=== PATIENT | female | born 1960 | race Caucasian/White ===

== ENCOUNTER → 2019-08-04 08:42 | Outpatient (POV) | payer OTHER, MEDICARE, SELFPAY ==
[2019-08-04 09:11] VITALS: BP 140/82; PULSE 71; RESP 18; O2SAT 98; BMI 26.2
--- NOTE | 2019-08-04 09:13 | P.CONS_ITS ---
[facility] History I have reviewed the patient's past medical history: Yes
--- NOTE | 2019-08-04 09:13 | HMH.PAINSOAP ---
[facility] History I have reviewed the patient's past medical history: Yes
--- NOTE | 2019-08-04 10:52 | HMH.PMCON ---
Assessment and Plan (1) Degenerative joint disease (DJD) of lumbar spine Current visit: Yes Status: Chronic Qualifiers: Spinal osteoarthritis complication: with radiculopathy Qualified Code(s): M47.26 - Other spondylosis with radiculopathy, lumbar region Category: Medical Code(s): M47.816 - Spondylosis without myelopathy or radiculopathy, lumbar region - Assessment and plan all Dx Assessment and Plan for all problems:: We will see the patient back in 6 months reassess her symptoms at that time she has been instructed to call the office if she has any issues prior to her next appointment. Dr. Knutson has reviewed this note and agrees with this plan of care. This note was dictated using voice recognition software and may contain errors or omissions HPI - Data of Consult Consult date: 08/04/19 Requesting Physician: Vidya Garcia APRN Primary Care Provider: Nicki Monson - Consult Narrative Reason for consult: Follow-up History of present illness: Ms. Borrego is a 59 year old female who presents today for follow-up. Patient has intrathecal pain pump and was an established [place] patient however she is transferring care to this location. She is on home refill with her intrathecal pain pump and doing well with this. She is currently on a periodic dose she rates her pain a 3 out of 10 she denies side effects or medication. Rico reviewed and appropriate. Most of her pain is in her back and bilateral lower extremities. CC: Vidya Garcia APRN [facility] [place] History I have reviewed the patient's past medical history: Yes Medical History: Reports:: Myocardial Infarction Denies:: Cancer, Diabetes Mellitus Type 1, Diabetes Mellitus Type 2, MRSA *Have you ever received a pneumonia vaccine?: Yes *Have you received a flu vaccine this season?: Yes Other Medical History: Reports: Thyroid Disease Laterality Cases: Right: Other Other Surgeries: Yes: Cholecystectomy, Hernia Repair, Hysterectomy-Total Amputation: Yes Fractures: Yes - *Social History Smoking Status: Never smoker Alcohol Intake: never *Occupational Status:: other Housing: house Household Members: other *Travel in the last 8 weeks: None Family Hx:: Unable to obtain Review of Systems - Review of Systems ROS General: no recent weight change, no fever, no sleep disturbances Respiratory: no cough, no shortness of air, no recurring pulmonary infections Cardiovascular/Peripheral Vascular: No chest pain, No palpitations, no edema, no shortness of breath. Gastrointestinal: no new onset incontinence, normal bowel movements reported Genitourinary: no new onset incontinence Musculoskeletal: Back pain, leg pain Psychiatric: normal mood/ affect Neurological: [denies new onset weakness in extremities], [denies new onset balance issues] Meds Home Medications Medication Instructions Recorded Confirmed Type Metoprolol Succinate [Kapspargo 25 mg PO DAILY 08/04/19 08/04/19 History Sprinkle] Trazodone HCl 50 mg PO HS 08/04/19 08/04/19 History Warfarin Sodium 5 mg PO DAILY 08/04/19 08/04/19 History Zolpidem Tartrate [Edluar] 5 mg SL DAILY 08/04/19 08/04/19 History Objective Vital signs: Pulse Resp BP Pulse Ox 71 18 140/82 98 08/04/19 09:11 08/04/19 09:11 08/04/19 09:11 08/04/19 09:11 Narrative: Physical Exam General: Alert and oriented x3, no acute distress, pleasant and cooperative, [on room air] Lungs: Resps E/U, Symmetrical chest expansion, Eyes: PERRL Musculoskeletal: Flexion and extension of lumbar spine somewhat guarded secondary to pain, deep tendon reflexes normal, strength in upper and lower extremities [5/5], normal gait noted Neurological: speech clear, graphite disk assembler equal, no gross sensory deficits
== END ==
PROVIDERS: PCP Internal Medicine; Visit Provider Clinical Nurse Specialist Family Health
DX: M47.26 Other spondylosis with radiculopathy, lumbar region (principal)
CPT/HCPCS: 99202

== ENCOUNTER → 2020-02-05 10:53 | Outpatient (POV) | payer OTHER, MEDICARE, SELFPAY ==
[2020-02-05 11:27] VITALS: BP 109/60; PULSE 64; RESP 18; TEMP 36.8; O2SAT 98; BMI 26.4
--- NOTE | 2020-02-05 13:04 | P.PCN_ITS ---
- Procedure Date: 02/05/20 Time: 13:04 Anesthesiologist:: Christa Smith APRN Complications:: None Pre-procedure Diagnosis:: Degenerative disc disease lumbar spine with lumbar radiculopathy symptoms, spondylosis lumbar spine Post-procedure Diagnosis:: Same Indications for Procedure:: Patient is a 59-year-old white female who presents today for 6-month follow-up. She does have an intrathecal pain pump that is helping refilled. She says that her pain is a 5 out of 10 today. Patient says that the pump does well for her, however, she is having worsening pain of recent days into her low back area. She says injective therapy has not helped her in the past nor has physical therapy or anti-inflammatories. She would like an increase in her dose today. She is currently on morphine at 6.15 mg/day. She is on periodic flow at 0.76 mg every 3 hours. She would like an increase. We will give her a bolus while she is in the clinic today to see if this helps with her pain. The patient [facility] #[id number] has been reviewed and is appropriate. Her drug screens have been appropriate. Her morphine equivalent is 0. Physical exam General: Alert and oriented x3, no acute distress, pleasant and cooperative, [on room air] Lungs: Respirations even and unlabored, symmetrical chest expansion Eyes: PERRL Musculoskeletal: Flexion and extension of lumbar spine somewhat guarded s econdary to pain, deep tendon reflexes normal, strength in upper and lower extremities [5/5], [abnormal gait noted] Neurological: Speech clear, diesel engine engineer equal, no gross sensory deficit Procedure Details:: Informed consent was obtained and the risk and benefits of the procedure were explained to the patient. Patient was taken to the procedure room where noninvasive monitoring was placed including noninvasive blood pressure cuff and pulse oximeter. Patient's pump was interrogated and was reprogrammed to increase to morphine at 0.96 mg every 3 hours for a daily dose of morphine at 7.68 mg/day. The patient tolerated the procedure well with no complications. Plan and Disposition:: Patient was given a bolus of 0.05 mg/day while she was in the clinic. She says that she did get some relief. She was given an increase in her dosing. She has been instructed to call the clinic if she has any concerns or issues with any increase in her dose. Otherwise, we will see her back in 6 months for repeat evaluation. She has been instructed to contact clinic if she has any concerns for next appointment. The patient and I specifically discussed risk factors for COVID19. These risks include, but are not limited to age greater than 60, heart or lung disease, diabetes, immunosuppression, and travel. We also discussed NSAIDs may worsen COVID19 infection or symptoms. Patient should not use NSAIDs to treat COVID19 signs or symptoms. Patient was also informed that any type of corticosteroid of any form (oral or injection) will decrease the patient's immune system response and may increase the likelihood of COVID19 infection [address] symptoms[address]. Knutson has reviewed this note and agrees with this plan of care. This note was dictated using voice recognition software and make contain errors or omissions.
== END ==
PROVIDERS: PCP Internal Medicine; Visit Provider Clinical Nurse Specialist Family Health
DX: M51.16 Intervertebral disc disorders with radiculopathy, lumbar region (principal); M47.896 Other spondylosis, lumbar region; Z45.1 Encounter for adjustment and management of infusion pump
CPT/HCPCS: 62368

== ENCOUNTER → 2020-08-05 10:53 | Outpatient (POV) | payer OTHER, MEDICARE, SELFPAY ==
[2020-08-05 11:17] VITALS: BP 141/79; PULSE 80; RESP 18; O2SAT 98; BMI 27.0
--- NOTE | 2020-08-05 11:45 | HMH.PMPROC ---
- Procedure Date: 08/05/20 Time: 11:45 Anesthesiologist:: Vidya Garcia APRN Complications:: None Pre-procedure Diagnosis:: Degenerative disc disease lumbar spine lumbar radiculopathy back pain Post-procedure Diagnosis:: Same Indications for Procedure:: Patient is a pleasant 60-year-old white female who presents today for follow-up and intrathecal pain pump adjustment. She is on home refill. She is currently going on a periodic flow of 1.056 mg every 3 hours. She would like a slight increase she rates her pain today 5 out of 10. Overall doing well denies side effects from medication. Procedure Details:: Informed consent was obtained and the risk and benefits of the procedure were explained to the patient. The patient was taken to the procedure room where noninvasive monitoring was placed including noninvasive blood pressure cuff and pulse oximeter. Patient's pump was interrogated and reprogrammed. The infusion rate was increased to 1.1 mg every 3 hours of morphine. The patient tolerated the procedure well. Plan and Disposition:: We will see the patient back in 6 months reassess her symptoms at that time she has been instructed to call the office if she has any issues prior to her next appointment. Dr. Knutson has reviewed this note and agrees with this plan of care. This note was dictated using voice recognition software and may contain errors or omissions
--- NOTE | 2020-10-04 08:45 | PC.NURSE ---
Dental office faxed note stating patient was prescribed Tylenol 3 #12 with 0 refills on Sunday10/01/2020 for dental related pain.
== END ==
PROVIDERS: PCP Internal Medicine; Visit Provider Clinical Nurse Specialist Family Health
DX: M51.16 Intervertebral disc disorders with radiculopathy, lumbar region (principal); Z45.1 Encounter for adjustment and management of infusion pump
CPT/HCPCS: 62368

== ENCOUNTER → 2021-02-03 11:04 | Outpatient (POV) | payer OTHER, MEDICARE, SELFPAY ==
[2021-02-03 11:25] VITALS: BP 107/80; PULSE 66; RESP 18; O2SAT 98; BMI 25.1
--- NOTE | 2021-02-03 12:28 | HMH.PAINSOAP ---
[facility] Pain Management SOAP Note Subjective:: Patient is a pleasant 60-year-old white female who presents today for follow-up. She is at [facility] home refill patient. She is managed with intrathecal therapy which gives her significant relief. She denies any side effects to her medicine and is doing well overall with morphine. She says her pain is a 4 out of 10 which is baseline for her. She does not want any changes today. Overall, the patient is doing well today. Review of Systems General: No recent weight changes, no fever, no sleep disturbances Respiratory: No cough, no shortness of air, no recurring pulmonary infections Cardiovascular/peripheral vascular: No chest pain, no palpitations, no edema, no shortness of breath Gastrointestinal: No new onset incontinence, normal bowel movements reported Genitourinary: No new onset incontinence Musculoskeletal: Intermittent low back pain Psychiatric: [Normal mood/affect] Neurological: [Denies weakness in extremities], [denies balance issues] Objective:: Physical exam General: Alert and oriented x3, no acute distress, pleasant and cooperative Lungs: Respirations even and unlabored, symmetrical chest expansion Eyes: PERRL Musculoskeletal: Flexion and extension of lumbar [spine] somewhat guarded secondary to pain, [antalgic gait noted] Neurological: Speech clear, no gross sensory deficit Assessment:: Degenerative disc disease lumbar spine with lumbar radiculopathy symptoms Plan:: Patient is doing well overall with her intrathecal therapy. She continues to be monitored through [facility] with drug screens and medication refill. Patient's Yoselyn #[id number] has been reviewed and is appropriate. Morphine equivalent is 0. We will see the patient back in 6 months for further follow-up. Risks and benefits of the medication have been explained in detail to the patient. The patient does understand the risk of dependence on the medication when given over a prolonged period. Patient has been advised of risks of oversedation with the prescribed medication. Narcan has been offered to the paitent in the event of oversedation. Patient has been advised that a family member should also be educated regarding administration of Narcan. The patient has been advised to consult with his/her primary care provider and pharmacist regarding drug-drug interaction of medications currently prescribed. Patient has been prescribed a controlled substance after being counseled on the medication, medication safety, and possible side effects. YOSELYN report has been obtained and reviewed prior to prescription and found to be appropriate. Opioid contract was reviewed and signed by the patient, and that they have agreed to all of the terms set forth by our compliance program. Patient has been instructed to contact the clinic with any concerns before the next appointment. Dr. Knutson has reviewed this note and agrees with this plan of care. This note was dictated using voice recognition software and make contain errors or omissions. [facility] History Medical History: Reports:: Myocardial Infarction Denies:: Cancer, Diabetes Mellitus Type 1, Diabetes Mellitus Type 2, MRSA *Have you ever received a pneumonia vaccine?: No *Have you received a flu vaccine this season?: No Other Medical History: Reports: Thyroid Disease Laterality Cases: Right: Other Other Surgeries: Yes: Cholecystectomy, Hernia Repair, Hysterectomy-Total Amputation: Yes Fractures: Yes - *Social History Smoking Status: Never smoker Alcohol Intake: never *Occupational Status:: unemployed Housing: house Household Members: other *Travel in the last 8 weeks: None Family Hx:: Unable to obtain
== END ==
PROVIDERS: Visit Provider Clinical Nurse Specialist Family Health
DX: M51.16 Intervertebral disc disorders with radiculopathy, lumbar region (principal)
CPT/HCPCS: 99212; G0463

== ENCOUNTER → 2021-08-18 13:58 | Outpatient (POV) | payer BC, MEDICARE, SELFPAY ==
[2021-08-18 14:15] VITALS: BP 121/70; PULSE 66; RESP 18; TEMP 36.2; O2SAT 97; BMI 24.9
--- NOTE | 2021-08-18 15:59 | P.CONS_ITS ---
[facility] Pain Management SOAP Note Subjective:: Patient is a pleasant 61-year-old female who presents today for 6-month follow- up. She is currently being treated for your degenerative disc disease of the lumbar spine with lumbar radiculopathy symptoms. She is currently being managed with intrathecal morphine 20 mg/mL at a rate of 8.8 mg/day. She is a home refill [facility]. States that she is doing well with her intrathecal pain pump. Denies any side effects from these medication. Denies any change in location type of pain. Denies any recent hospitalization. Overall doing okay today. Rico [phone] with an active morphine equivalent of 0. Review of Systems: General: No recent weight changes, no fever, no sleep disturbances Respiratory: No cough, no shortness of air, no recurring pulmonary infections Cardiovascular/peripheral vascular: No chest pain, no palpitations, no edema, no shortness of breath Gastrointestinal: No new onset incontinence, normal bowel movements reported Genitourinary: No new onset incontinence Musculoskeletal: Low back pain Psychiatric: [Normal mood/affect] Neurological: [Denies weakness in extremities], [denies balance issues] Objective:: Physical Exam: General: Alert and oriented x3, no acute distress, pleasant and cooperative Lungs: Respirations even and unlabored, symmetrical chest expansion Eyes: PERRL Musculoskeletal: Flexion and extension of lumbar [spine] somewhat guarded secondary to pain, [antalgic gait noted] Neurological: Speech clear, no gross sensory deficit Assessment:: Degenerative disc disease of lumbar spine with lumbar radiculopathy symptoms Plan:: Patient is doing well overall with her intrathecal pain pump. She does not want any adjustments today. We will follow-up with her in 6 months. Patient has been instructed to contact the clinic with any concerns before the next appointment. Dr. Knutson has reviewed this note and agrees with this plan of care. This note was dictated using voice recognition software and make contain errors or omissions. [facility] History Medical History: Reports:: Myocardial Infarction Denies:: Cancer, Diabetes Mellitus Type 1, Diabetes Mellitus Type 2, MRSA *Have you ever received a pneumonia vaccine?: No *Have you received a flu vaccine this season?: No Other Medical History: Reports: Thyroid Disease Laterality Cases: Right: Other Other Surgeries: Yes: Cholecystectomy, Hernia Repair, Hysterectomy-Total Amputation: Yes Fractures: Yes - *Social History Smoking Status: Never smoker Alcohol Intake: never *Occupational Status:: unemployed Housing: house Household Members: other *Travel in the last 8 weeks: None Family Hx:: Unable to obtain
== END ==
PROVIDERS: Visit Provider Student in an Organized Health Care Education/Training Program
DX: M51.16 Intervertebral disc disorders with radiculopathy, lumbar region (principal)
CPT/HCPCS: 99212; G0463

== ENCOUNTER → 2022-03-27 13:11 | Outpatient (POV) | payer BC, MEDICARE, SELFPAY ==
--- NOTE | 2022-03-27 13:57 | EXP.PAIN.PRO ---
Procedure Date: 03/27/22 Time: 13:57 Anesthesiologist:: Carol Amanda APRN Complications:: None Pre-procedure Diagnosis:: Degenerative disc disease of lumbar spine with lumbar radiculopathy symptoms Post-procedure Diagnosis:: Same Indications for Procedure:: Patient is a pleasant 61-year-old female who presents today for intrathecal pain pump reprogramming adjustment. The patient is being treated for degenerative disc disease of lumbar spine with lumbar radiculopathy symptoms. Patient is currently being managed with morphine 25 mg/mL with a daily dose of 11.5 mg/day. Patient denies any side effects from this medication. Patient rates pain a 5 out of 10. Patient states she has consistently had increased pain over the last several weeks. Patient denies any new trauma or injury. Patient denies any change location or type of pain she experiences. She is a home refill [facility] patient. Drug screen is appropriate. Rico [id number] has been reviewed and is appropriate. Physical exam General: Alert and oriented x3, no acute distress, pleasant and cooperative Lungs: Respirations even and unlabored, symmetrical chest expansion Eyes: PERRL Musculoskeletal: Flexion and extension of lumbar [spine] somewhat guarded secondary to pain, [antalgic gait noted] Neurological: Speech clear, no gross sensory deficit ORT score updated with low risk of 0 Procedure Details:: Informed consent was obtained and the risk and benefits of the procedure were explained to the patient. Patient was taken to the procedure room where noninvasive monitoring was placed including noninvasive blood pressure cuff and pulse oximeter. Patient's pump was interrogated and was reprogrammed to morphine 25 mg/mL with a daily dose of 12.08 mg/day. The patient tolerated the procedure well with no complications. Plan and Disposition:: Patient will contact us if she needs additional follow-up appointments. Patient is scheduled to have her next at home refill date on her April 06. Patient has been instructed to contact the clinic with any concerns before the next appointment. Dr. Knutson has reviewed this note and agrees with this plan of care. This note was dictated using voice recognition software and make contain errors or omissions. -- It Is medically necessary for this patient to continue to have their intrathecal pump refilled at regular intervals. This patient had an intrathecal pain pump implanted after meeting criteria of chronic intractable pain for greater than 3 months and failing conservative treatments. Patient has committed and been compliant to the treatment plan and all planned follow up care. Since implantation of the intrathecal pain pump, the patient has had decreased pain and been more functional. Oral medications have been reduced including intake of oral opioids. Patient continues to do well with intrathecal therapy with decrease in pain symptoms and increase in functional status. Stopping intrathecal medications can lead to life threatening withdrawal, seizures, cardiac arrest, severe pain, and possible . Pumps that are not refilled at regular intervals can be damages and cause and need for replacement. We continually titrate dose and concentration to optimize pain relief and function. We are limited in concentration for certain drugs to safely deliver medications through the pump and stay within the recommendations from the Polyanalges[employer] Consensus Committee Guidelines. Depending on dose and concentration these pumps may need to be refilled sooner than 3 months as we titrate.
[2022-03-27 14:29] VITALS: BP 134/92; PULSE 61; RESP 18; O2SAT 97; BMI 25.7
== END | disposition home or self-care (01) ==
PROVIDERS: Visit Provider Nurse Practitioner Family
DX: Z45.1 Encounter for adjustment and management of infusion pump (principal); M51.16 Intervertebral disc disorders with radiculopathy, lumbar region
CPT/HCPCS: 62368; 99212; G0463

== ENCOUNTER 2023-10-08 11:25 | Outpatient (POV) | payer MEDICARE, SELFPAY ==
[2023-10-08 11:29] VITALS: BP 129/80; PULSE 80; RESP 18; O2SAT 96; BMI 25.2
--- NOTE | 2023-10-08 11:59 | A.OFFVIS_ITS ---
[facility] Disclaimer: The information contained in this section may have been updated after the patient was seen, as this information can be updated by other users. Social History Smoking Status: Never smoker alcohol intake: never current occupational status: other Travel in the last 8 weeks: None household members: other housing: house caffeine: No PM Subjective & Objective Subjective Subjective:: Patient is a pleasant 63-year-old female who presents today for 6-month follow- up. Today she rates her pain a 4 out of 10. Patient denies any new trauma or injury. Patient is currently managed with morphine 25 mg/mL with a daily dose of 14.4 mg/day. She denies any side effects from this medication. She does state that she is curious of when her next pump replacement needs to be. Patient states that she feels like she has had her pump about 7 years. Patient is not at home refill client and does state the only thing that she has noticed over the last few months is that the nurse who fills her has said there has been a little bit more on her pump refills when they remove the fluid however it still within normal findings. Patient states overall the pump is working well and denies any adjustments needed today. Her Rico has been reviewed and is a ppropriate. Review of Systems: General: No recent weight changes, no fever, no sleep disturbances Respiratory: No cough, no shortness of air, no recurring pulmonary infections Cardiovascular/peripheral vascular: No chest pain, no palpitations, no edema, no shortness of breath Gastrointestinal: No new onset incontinence, normal bowel movements reported Genitourinary: No new onset incontinence Musculoskeletal: Low back pain Psychiatric: [Normal mood/affect] Neurological: [Denies weakness in extremities], [denies balance issues] Pain at rest (0-10 scale): 4 Objective Objective:: Physical Exam: General: Alert and oriented x3, no acute distress, pleasant and cooperative Lungs: Respirations even and unlabored, symmetrical chest expansion Eyes: PERRL Musculoskeletal: Flexion and extension of lumbar [spine] somewhat guarded secondary to pain, [antalgic gait noted] Neurological: Speech clear, no gross sensory deficit Has patient had previous pain injection?: No Conservative treatment options previously tried: Home exercise plan Length of treatment: Longer than 6 weeks Meds Home Medications and Allergies Home Medications Medication Instructions Recorded Confirmed Type metoprolol succinate 25 mg capsule 25 mg PO DAILY Hypertension 08/04/19 10/08/23 History sprinkle, ext. release 24 hr trazodone 50 mg tablet 50 mg PO HS SLEEP 08/04/19 10/08/23 History warfarin 5 mg tablet 5 mg PO DAILY Blood thinner 08/04/19 10/08/23 History zolpidem 5 mg sublingual tablet 5 mg SL DAILY Depression 08/04/19 10/08/23 History New Prescriptions to Start Prescriptions: Allergies Allergy/AdvReac Type Severity Reaction Status Date / Time No Known Allergies Allergy Verified 10/08/23 11:40 Assessment and Plan *Assessment and plan (1) Degenerative joint disease (DJD) of lumbar spine: Status: Chronic Qualifiers: Spinal osteoarthritis complication: with radiculopathy Qualified Code(s ): M47.26 - Other spondylosis with radiculopathy, lumbar region Category: Medical Code(s): M47.816 - Spondylosis without myelopathy or radiculopathy, lumbar region Plan Patient is still doing well with her current pump settings. We did read her pump and it was not given an end of life date. I have counseled the patient if she starts to feel like her pump is not working as effectively and that the [facility] nurse is still having additional problems or discrepancies that at that time we would submit for replacement of her pump and catheter. Patient is agreeable to this. Patient will return to clinic in 6 months for reevaluation of symptoms and plan of care. Patient has been instructed to contact the clinic with any concerns before the next appointment. Dr. Knutson has reviewed this note and agrees with this plan of care. This note was dictated using voice recognition software and make contain errors or omissions. -- It Is medically necessary for this patient to continue to have their intrathecal pump refilled at regular intervals. This patient had an intrathecal pain pump implanted after meeting criteria of chronic intractable pain for greater than 3 months and failing conservative treatments. Patient has committed and been compliant to the treatment plan and all planned follow up care. Since implantation of the intrathecal pain pump, the patient has had decreased pain and been more functional. Oral medications have been reduced including intake of oral opioids. Patient continues to do well with intrathecal therapy with decrease in pain symptoms and increase in functional status. Stopping intrathecal medications can lead to life threatening withdrawal, seizures, cardiac arrest, severe pain, and possible . Pumps that are not refilled at regular intervals can be damages and cause and need for replacement. We continually titrate dose and concentration to optimize pain relief and function. We are limited in concentration for certain drugs to safely deliver medications through the pump and stay within the recommendations from the Polyanalgesic Consensus Committee Guidelines. Depending on dose and concentration these pumps may need to be refilled sooner than 3 months as we titrate.
== END 2023-10-08 23:59 | disposition home or self-care (01) ==
LOC: SC.PAIN 11:28
PROVIDERS: PCP Internal Medicine; Visit Provider Nurse Practitioner Family
DX: M47.26 Other spondylosis with radiculopathy, lumbar region (principal); G89.29 Other chronic pain
CPT/HCPCS: 99212; G0463

== ENCOUNTER 2023-12-18 11:43 | Day surgery (SDC) | payer MEDICARE, SELFPAY ==
[2023-12-18 11:50] VITALS: BP 164/90; PULSE 81; RESP 16; TEMP 36.6; O2SAT 96; BMI 20.7
[2023-12-18 12:04] VITALS: BP 155/97; PULSE 83; RESP 18; O2SAT 98
[2023-12-18 12:05] VITALS: BP 155/97; PULSE 83; RESP 18; O2SAT 98
--- NOTE | 2023-12-18 12:29 | P.PCN_ITS ---
Procedure Date: 12/18/23 Time: 12:12 Anesthesiologist:: Bertrand Ramos CRNA Complications:: None Pre-procedure Diagnosis:: Degenerative disc lumbar spine multiple levels. Lumbar radiculopathy. Multilevel lumbar facet arthropathy. Post-procedure Diagnosis:: Same. Indications for Procedure:: Patient is a very pleasant 63-year-old female comes our clinic today for intrathecal pain pump interrogation and refill. She is currently being managed with morphine sulfate 25 mg/mL at a rate of 14.4 mg/day. She is having some increased pain in the low spine she is concerned is coming from the pump timing out as it has been in for nearly 8 years. There is no discrepancy in the pump volume. However, I will increase her rate by 10%. We will begin the paperwork to get her pump exchanged out for new Medtronic pump. Patient is awake alert [place] x 3. No acute distress. Flexion-extension lumbar spine somewhat guarded secondary to pain. Deep tendon reflexes upper lower extremities normal. Motor strength upper lower extremities normal. There is no gross sensory deficit. Gait is normal. Procedure Details:: Details of the procedure explained to the patient. The patient taken procedure and placed in the sitting position. The area of the pump was cleansed using chlorhexidine as a cleansing solution. The pump was interrogated. The pump was accessed with ease using a 22-gauge inch to half needle. 5 mL of solution was withdrawn discarded appropriate. The pump was then filled with 20 cc of solution containing morphine sulfate 25 mg/mL. The pump rate will increase by 10%. The new rate will be 15.8400 mg/day. Patient tolerated procedure without difficulty. There are no complications. Plan and Disposition:: We will begin the paperwork for pump exchange approval with insurance. Patient was discharged without incident.
[2023-12-18 12:31] VITALS: BP 157/86; PULSE 83; RESP 16; O2SAT 97
== END 2023-12-18 12:31 | disposition home or self-care (01) ==
PROVIDERS: PCP Internal Medicine; Visit Provider Nurse Anesthetist, Certified Registered
DX: M51.16 Intervertebral disc disorders with radiculopathy, lumbar region (principal); M47.26 Other spondylosis with radiculopathy, lumbar region
CPT/HCPCS: 95991

== ENCOUNTER 2024-01-08 11:47 | Day surgery (SDC) | payer MEDICARE, SELFPAY ==
[2024-01-08 12:57] VITALS: BP 161/92; PULSE 73; RESP 16; O2SAT 97; BMI 25.1
[2024-01-08 13:09] VITALS: BP 160/97; PULSE 67; RESP 18; O2SAT 96
[2024-01-08 13:13] VITALS: BP 160/97; PULSE 69; RESP 18; O2SAT 96
[2024-01-08 13:29] VITALS: BP 162/98; PULSE 71; RESP 16; O2SAT 98
--- NOTE | 2024-01-08 13:33 | P.PCN_ITS ---
Procedure Date: 01/08/24 Time: 13:00 Anesthesiologist:: Bertrand Ramos CRNA Complications:: None Pre-procedure Diagnosis:: Degenerative disc lumbar spine multilevels. Lumbar radiculopathy. Lumbar facet arthropathy. Post-procedure Diagnosis:: Same. Indications for Procedure:: Patient is a pleasant 63-year-old female who comes our clinic today for intrathecal pain pump interrogation refill. She is currently being managed with morphine sulfate 25 mg/mL 15.8400 mg/day. She is doing very well with her current settings. She is not requesting any changes. She does not reporting side effects or complications. However, she does report the pump seems to be not as effective as before. She has a flow [place] pump that is over 7 years old. Most likely, needs to be changed out for the new Medtronic pump. We have the paperwork in progress for this procedure. Patient is awake alert [place] x 3. In no acute distress. Flexion-extension lumbar spine somewhat guarded secondary to pain. Deep tendon reflexes upper and lower extremities normal. Motor strength upper lower extremities normal. There is no gross sensory deficit. Gait is normal. Procedure Details:: Details of the procedure explained to the patient. The patient taken procedure room placed in the sitting position. They over the pumps cleansed using chlorhexidine as a cleansing solution. The pump was interrogated. The pump was accessed with ease using a 22-gauge inch and a half needle. 6 mL of solution was withdrawn discarded appropriate. The pump was then filled with 20 cc of solution containing morphine sulfate 25 mg/mL. There is no change in the rate. Patient tolerated procedure without difficulty. There are no complications. Plan and Disposition:: We will keep the patient informed regarding pump exchange approval from insurance. She was discharged without incident.
== END 2024-01-08 13:29 | disposition home or self-care (01) ==
PROVIDERS: PCP Internal Medicine; Visit Provider Nurse Anesthetist, Certified Registered
DX: M51.16 Intervertebral disc disorders with radiculopathy, lumbar region (principal); M47.26 Other spondylosis with radiculopathy, lumbar region
CPT/HCPCS: 95991

== ENCOUNTER 2024-01-29 09:50 | Day surgery (SDC) | payer MEDICARE, SELFPAY ==
[2024-01-29 10:13] VITALS: BP 136/77; PULSE 72; RESP 16; TEMP 36.7; O2SAT 98; BMI 24.3
[2024-01-29 10:37] VITALS: BP 134/73; PULSE 79; RESP 18; O2SAT 97
[2024-01-29 10:41] VITALS: BP 134/73; PULSE 79; RESP 18; O2SAT 97
[2024-01-29 10:53] VITALS: BP 137/85; PULSE 71; RESP 16; O2SAT 94
--- NOTE | 2024-01-29 10:58 | EXP.PAIN.PRO ---
Procedure Date: 01/29/24 Time: 10:30 Anesthesiologist:: Bertrand Ramos CRNA Complications:: None Pre-procedure Diagnosis:: Degenerative disc lumbar spine multilevels. Lumbar radiculopathy Post-procedure Diagnosis:: Same. Indications for Procedure:: Patient is a very pleasant 63-year-old female comes our clinic today for intrathecal pain pump interrogation refill. She is currently being managed morphine sulfate 25 mg/mL. She is reporting some low back pain as well as bilateral hip and leg pain at times. Specifically, with increased activity. She is requesting increase in the pump rate. I think this is reasonable. I will give her a 20% increase. Patient also on the schedule for next month pump exchange. Her current rate is 15.8400 mg/day. Her new rate will be 19.0080 mg/day. Patient awake alert [place] x 3. No acute distress. Flexion-extension lumbar spine somewhat guarded secondary to pain. Deep tendon reflexes upper lower extremities normal. Motor strength upper lower extremities normal. There is no gross sensory deficit. Gait is normal. Procedure Details:: Details of the procedure explained the patient. The patient taken procedure room placed in sitting position. They over the pumps cleansed using chlorhexidine as a cleansing solution. The pump was interrogated. The pump was accessed with ease using 22-gauge inch and a half needle. 6 mL of solution was withdrawn discarded appropriate. The pump was then filled with 20 cc of solution containing morphine sulfate 25 mg/mL. The pump rate will increase to 19.0080 mg/day. Patient tolerated procedure without difficulty. There are no complications. Plan and Disposition:: Patient was discharged without incident.
== END 2024-01-29 10:53 | disposition home or self-care (01) ==
PROVIDERS: PCP Internal Medicine; Visit Provider Nurse Anesthetist, Certified Registered
DX: M51.16 Intervertebral disc disorders with radiculopathy, lumbar region (principal)
CPT/HCPCS: 62370

== ENCOUNTER 2024-02-19 13:29 | Day surgery (SDC) | payer MEDICARE, SELFPAY ==
[2024-02-19 13:41] VITALS: BP 143/62; PULSE 68; RESP 16; TEMP 36.5; O2SAT 100; BMI 24.3
[2024-02-19 13:51] VITALS: BP 134/81; PULSE 72; RESP 18; O2SAT 98
[2024-02-19 13:54] VITALS: BP 134/81; PULSE 72; RESP 18; O2SAT 98
--- NOTE | 2024-02-19 14:00 | EXP.PAIN.PRO ---
Procedure Date: 02/19/24 Time: 13:55 Anesthesiologist:: Bertrand Ramos CRNA Complications:: None Pre-procedure Diagnosis:: Degenerative disc lumbar spine multilevels. Lumbar radiculopathy. Post-procedure Diagnosis:: Same. Indications for Procedure:: Patient is a very pleasant 63-year-old female who comes our clinic today for intrathecal pain pump interrogation and refill. She is currently being managed with morphine sulfate 25 mg/mL at 19.0080 mg/day. She is requesting increase. She is on the schedule for 02/29/2024 to have both intrathecal pain pump and tubing exchange. I will increase her by 20% today. Her pump is coming to end-of-life. She rates her pain 4/10. Procedure Details:: Details of the procedure explained to the patient. The patient taken procedure room placed in the sitting position. They over the pumps cleansed using chlorhexidine as a cleansing solution. The pump was interrogated. The pump was accessed with ease using a 22-gauge inch and half needle. 3 mL of solution was withdrawn discarded appropriate. The pump was then filled with 20 cc of solution containing morphine sulfate 25 mg/mL. Pump rate will be increased to 22.8096 mg/day. Patient tolerated procedure without difficulty. There are no complications. Plan and Disposition:: Patient was discharged without incident.
[2024-02-19 14:08] VITALS: BP 133/83; PULSE 72; RESP 16; O2SAT 97
== END 2024-02-19 14:08 | disposition home or self-care (01) ==
PROVIDERS: PCP Internal Medicine; Visit Provider Nurse Anesthetist, Certified Registered
DX: M51.16 Intervertebral disc disorders with radiculopathy, lumbar region (principal)

== ENCOUNTER 2024-02-19 13:56 | Outpatient (CLI) | payer MEDICARE, SELFPAY ==
--- NOTE | 2024-02-19 14:53 | ECG_ITS ---
APPROVED REPORT Exam: Resting ECG HR:61 bpm ECG Measurements Heart Rate 61 AXES WI 227 P 68 QRSd 206 QRS -75 QT 542 T 78 QTc 545 Conclusion ELECTRONIC VENTRICULAR PACEMAKER ABNORMAL RHYTHM ECG UNCONFIRMED REPORT Electronically signed by : Corey Javier MD 02/20/2024 20:55:12
[2024-02-19 14:58] VITALS: BMI 24.3
[2024-02-19 15:14] LABS: Basophils % 0.6 % (0.1-2.0); Eosinophils # 0.1 K/mm3 (0.0-0.4); Eosinophils % 3.1 % (0.1-12.0); Hemoglobin 12.8 g/dL (12.2-16.2); Lymphocytes # 1.1 K/mm3 (0.7-4.5); Lymphocytes % 24.4 % (10-50); Mean Corpuscular HGB Conc 33.7 g/dL (31.8-35.4); Mean Corpuscular Hemoglobin 30.3 pg (27.0-31.2); Mean Corpuscular Volume 89.8 fl (81-99); Mean Platelet Volume 8.4 fl (7.4-10.4); Monocytes # 0.3 K/mm3 (0.1-1.0); Monocytes % 5.6 % (1.7-9.3); Neutrophils % 66.3 % (37.0-80.0); Platelet Count 195 K/mm3 (142-424); Red Blood Count 4.24 M/mm3 (4.20-5.40); Red Cell Distribution Width 14.2 % (11.5-17.5); White Blood Count 4.6 K/mm3 (4.8-10.8)
[2024-02-19 15:15] LABS: Anion Gap 7.9 mEq/L (5-15); Blood Urea Nitrogen 14 mg/dl (7-17); Calcium 8.3 mg/dl (8.4-10.2); Carbon Dioxide 29 mmol/L (22.0-30.0); Chloride 106 mmol/L (98-107); Creatinine Clearance Estimated 66 mL/min (50-200); Estimated Glomerular Filt Rate 84 ml/min (>60); GFR (African American) 102 ML/MIN (>60); Glucose 101 mg/dl (74-100); Potassium 3.9 mmoL/L (3.5-5.1); Sodium 139 mmol/L (136-145)
== END 2024-02-19 23:59 | disposition home or self-care (01) ==
LOC: PREOP 13:57
PROVIDERS: Nurse Anesthetist, Certified Registered; PCP Internal Medicine; Visit Provider Anesthesiology
DX: M47.816 Spondylosis without myelopathy or radiculopathy, lumbar region (principal)
CPT/HCPCS: 80048; 85025; 93005; 95991

== ENCOUNTER 2024-02-29 07:41 | Day surgery (SDC) | payer MEDICARE, SELFPAY ==
[2024-02-19 14:56] VITALS: BMI 24.3
[2024-02-29 10:55] VITALS: BP 145/78; PULSE 76; RESP 17; TEMP 36.3; O2SAT 94
[2024-02-29] MEDS: VANCOMYCIN/WATER FOR INJ (PEG) 1.25 GM/250 ML PIGGYBACK IV (11:02)
[2024-02-29] MEDS: LACTATED RINGERS 1000ML 1,000 ML 25 ML IV (11:04)
[2024-02-29 11:25] LABS: INR 0.93 (0.9-1.1); Prothrombin Time 10.5 seconds (10.1-12.5)
--- NOTE | 2024-02-29 12:43 | P.PNANES_ITS ---
[facility] Disclaimer: The information contained in this section may have been updated after the patient was seen, as this information can be updated by other users. Medical History Pacemaker Hypothyroid Biallelic mutation of HFE gene Anticoagulated on Coumadin Surgical History History of colon resection History of hernia repair History of hysterectomy History of appendectomy History of thyroidectomy Family History Other Unknown family medical history Social History Smoking Status: Never smoker alcohol intake: never substance use type: denies use current occupational status: other Travel in the last 8 weeks: None household members: other housing: house caffeine: No [facility] Anesthesia Checklist Patient Identification Patient Identification: Verbal (Name & ) Structural Data Admitted From: Home Planned Operative Procedure/s: nerve stim trial Consent for Planned Operative Procedure(s) Verified: Yes NPO Status Verified Time NPO: 00:00 Additional verifications Anesthesia Reactions: No Hx Blood Transfusions: Yes Blood Transfusion Reaction: No Airway Assessment Mallampati Score:: Class III C-Spine Mobility Assessed: Yes TMJ Mobility Assessed: Yes Dentition: Good Dentition Neurological Assessment Level of Consciousness: Awake, Alert and Appropriate Anesthesia Plan Anesthesia Risk discussed: No Anesthesia Plan: Verified ASA Class: III Anesthesia Type: MAC
[2024-02-29] MEDS: SODIUM CHLORIDE 0.9% 20ML VIAL 40 ML IV (13:54)
[2024-02-29] MEDS: GENTAMICIN 80 MG/2 ML VIAL (13:54)
[2024-02-29 14:25] VITALS: BP 113/72; PULSE 66; RESP 18; TEMP 36.2; O2SAT 95
[2024-02-29 14:35] VITALS: BP 112/77; PULSE 60; RESP 18; O2SAT 96
--- NOTE | 2024-02-29 14:43 | P.OP_ITS ---
Date of procedure: 02/29/24 Pre-op Diagnosis:: Nonfunctioning intrathecal pain pump system Post-op Diagnosis:: Same Procedure performed:: Replacement pain pump system with new tunneled intrathecal catheter and replacement pain pump generator Surgeon:: Shiv Knutson MD ASSISTANT PRESS OPERATOR OFFSET:: [place] Anesthesia: MAC Estimated blood loss (mL): 5 Clinical Note:: This patient is a pleasant 63-year-old white female who has a nonfunctioning [employer] intrathecal pain pump system. She is on periodic flow with boluses every 3 hours total daily dose is 22 mg/day of intrathecal morphine. We will replace her pump today with a new tunneled intrathecal catheter and refill her pump with morphine 25 mg/mL. We will reduce her dose to 1.75 mg boluses every 3 hours on flex dosing total daily dose 15 mg/day. Operative findings:: None Operative note:: Informed consent was obtained risk and benefits of the procedure were explained to the patient. The patient was taken the operating room placed prone on the procedure table. She was prepped and draped in sterile fashion. C arm fluoroscopy was used to view the catheter and the pump generator. The catheter tip was at the T10 vertebral body. It was found to be anterior. The skin and subcutaneous tissues overlying the pump were anesthetized using lidocaine. I made an incision dissected out the pump generator. I disconnected the catheter and tied it off with 0 silk ties x 3. C-arm fluoroscopy was used to view the lumbar spine. The skin and subcutaneous tissues adjacent to the L4-5 interspace were anesthetized using lidocaine. I made incision dissected down to the lumbar paraspinous fascia. A 17-gauge spinal needle was inserted and advanced into the L3-L4 interspace until clear CSF was obtained. After this intrathecal catheter was inserted and advanced very easily to the T10 vertebral body. The catheter was adjacent to the old catheter however the new catheter was found to be posterior and midline. The stylette of the catheter and the needle withdrawn. The catheter was secured to the fascia with an anchor device and 2-0 Prolene. I filled the pump with 20 mL of intrathecal morphine 25 mg/mL. I tunneled the catheter from the back to the pump pocket and attached catheter to the pump. The pump was placed in the pocket with an antibiotic pouch. We were able to freely withdraw clear CSF through the sideport. Both incisions were then closed with 2-0 Vicryl followed by 4-0 nylon and gustavo. Patient tolerated the procedure well with no complications. The pump was interrogated and started at 1.75 mg boluses every 3 hours on flex dosing with total daily dose of 15 mg/day. Refill date is 03/29/2024. Patient was discharged home neurologic intact with good relief of pain symptoms. Plan and disposition: Will follow-up with this patient in 1 week for wound check and reprogram. Will follow-up in 2 to 3 weeks for suture and staple removal. Condition: stable Disposition: PACU Complications:: none
[2024-02-29 14:45] VITALS: BP 122/72; PULSE 64; RESP 18; O2SAT 96
[2024-02-29 15:22] VITALS: BP 132/74; PULSE 62; RESP 18; O2SAT 97
== END 2024-02-29 15:22 | disposition home or self-care (01) ==
PROVIDERS: PCP Internal Medicine; Visit Provider Anesthesiology
DX: T85.695A Other mechanical complication of other nervous system device, implant or graft, initial encounter (principal)
CPT/HCPCS: 62350; 62362; 85610; 96374; C1755; C1772; J1580; J2250; J2405; J3010; J3372; J7120

== ENCOUNTER 2024-03-07 12:51 | Outpatient (POV) | payer MEDICARE, SELFPAY ==
[2024-03-07 13:45] VITALS: BP 170/86; PULSE 71; RESP 16; O2SAT 98; BMI 24.3
--- NOTE | 2024-03-07 14:03 | P.PCN_ITS ---
Procedure Date: 03/07/24 Time: 14:03 Anesthesiologist:: Carol Amanda APRN Complications:: None Pre-procedure Diagnosis:: Degenerative disc disease of lumbar spine with lumbar radiculopathy symptoms Post-procedure Diagnosis:: Same Indications for Procedure:: Patient is a pleasant 63-year-old female who presents today for 1 week postop of intrathecal catheter and generator replacement. Today she rates her pain a 5 out of 10. She denies any problems following this procedure. Patient is currently managed with flex dosing of morphine 25 mg/mL with a flex dosing every 3 hours of 1.75 mg for a total of 15 mg/day. She denies any side effects from this medication. Her Rico has been reviewed and is appropriate. Physical Exam: General: Alert and oriented x3, no acute distress, pleasant and cooperative Lungs: Respirations even and unlabored, symmetrical chest expansion Eyes: PERRL Musculoskeletal: Flexion and extension of lumbar [spine] somewhat guarded secondary to pain, [antalgic gait noted] Neurological: Speech clear, no gross sensory deficit Skin: Incision sites are clean, dry, well-approximated with no erythema noted, sutures and gustavo intact Procedure Details:: Informed consent was obtained and the risk and benefits of the procedure were explained to the patient. Patient did have noninvasive monitoring was placed including noninvasive blood pressure cuff and pulse oximeter. Patient's pump was interrogated and was reprogrammed to morphine flex dosing to 0.017 mg every 3 hours. The patient tolerated the procedure well with no complications. Plan and Disposition:: Patient tolerated her intrathecal increase with no complications and was discharged neurologically intact. I did tell the patient to continue her postop restrictions the full 6 weeks. Patient will return to clinic in 2 weeks for her next intrathecal refill and suture and staple removal. We will see the patient back in the clinic at the next intrathecal refill. Patient has been instructed to contact the clinic with any concerns before the next appointment. Dr. Knutson has reviewed this note and agrees with this plan of care. This note was dictated using voice recognition software and make contain errors or omissions. -- It Is medically necessary for this patient to continue to have their intrathecal pump refilled at regular intervals. This patient had an intrathecal pain pump implanted after meeting criteria of chronic intractable pain for greater than 3 months and failing conservative treatments. Patient has committed and been compliant to the treatment plan and all planned follow up care. Since implantation of the intrathecal pain pump, the patient has had decreased pain and been more functional. Oral medications have been reduced including intake of oral opioids. Patient continues to do well with intrathecal therapy with decrease in pain symptoms and increase in functional status. Stopping intrathecal medications can lead to life threatening withdrawal, seizures, car diac arrest, severe pain, and possible . Pumps that are not refilled at regular intervals can be damages and cause and need for replacement. We continually titrate dose and concentration to optimize pain relief and function. We are limited in concentration for certain drugs to safely deliver medications through the pump and stay within the recommendations from the Polyanalgesic Consensus Committee Guidelines. Depending on dose and concentration these pumps may need to be refilled sooner than 3 months as we titrate. A UDS is needed to verify patient's compliance with our office pain contract. This is ordered based off specific treatments related to chronic pain with the potential to abuse certain medications.
== END 2024-03-07 23:59 | disposition home or self-care (01) ==
PROVIDERS: PCP Internal Medicine; Visit Provider Nurse Practitioner Family
DX: M51.16 Intervertebral disc disorders with radiculopathy, lumbar region (principal)
CPT/HCPCS: 62368; 99212; 99213; G0463

== ENCOUNTER 2024-03-21 11:06 | Outpatient (POV) | payer MEDICARE, SELFPAY ==
[2024-03-21 11:50] VITALS: BP 172/82; PULSE 83; RESP 16; TEMP 36.8; O2SAT 94; BMI 24.3
[2024-03-21 12:17] VITALS: BP 162/82; PULSE 82; RESP 18
[2024-03-21 12:32] VITALS: BP 162/82; PULSE 82; RESP 18
--- NOTE | 2024-03-21 12:43 | P.PCN_ITS ---
Procedure Date: 03/21/24 Time: 12:30 Anesthesiologist:: Carol Amanda APRN Complications:: None Pre-procedure Diagnosis:: Degenerative disc disease of lumbar spine with lumbar radiculopathy symptoms Post-procedure Diagnosis:: Same Indications for Procedure:: Patient is a pleasant 63-year-old female who presents today for intrathecal refill and reprogram as well as staple removal. Today she rates her pain a 4 out of 10. She denies any new trauma or injury. She is currently managed with flex dosing of morphine 25 mg/mL with a daily dose of 17 mg/day. She denies any side effects from this medication. She does state that she is still having some incisional pain and would like to see about increasing her pump some. Patient denies any other issues following her pump replacement. Patient does state that her is having surgery next week for prostate cancer. Her Rico has been reviewed and is appropriate. Physical Exam: General: Alert and oriented x3, no acute distress, pleasant and cooperative Lungs: Respirations even and unlabored, symmetrical chest expansion Eyes: PERRL Musculoskeletal: Flexion and extension of lumbar [spine] somewhat guarded secondary to pain, [antalgic gait noted] Neurological: Speech clear, no gross sensory deficit Skin: Incision sites are clean, dry, well-approximated with minimal erythema noted and gustavo intact Procedure Details:: Informed consent was obtained and the risk and benefits of the procedure were explained to the patient. The patient had noninvasive monitoring placed including noninvasive blood pressure cuff and pulse oximeter. Patient's pump was interrogated. The area over the pump was cleansed with chlorhexidine as a cleansing solution. In sterile fashion the pump was accessed with a 22-gauge needle. Approximately 5.3 mls of the pump solution was removed and discarded appropriately. The pump was then refilled with 20 mL's of morphine 25 mg/mL. The needle was withdrawn and a bandage was placed over the puncture site. The infusion rate was reprogrammed and increased 10% in her flex dosing. The patient tolerated well with no complication. Plan and Disposition:: Patient tolerated the procedure well with no complications and was discharged neurologically intact. Patient was able to have all of her gustavo removed with skin glue and Steri-Strips applied. Patient was counseled to continue her postop restrictions the full 6 weeks. Patient will return to clinic on or before her next intrathecal refill date. We will see the patient back in the clinic at the next intrathecal refill. Patient has been instructed to contact the clinic with any concerns before the next appointment. Dr. Knutson has reviewed this note and agrees with this plan of care. This note was dictated using voice recognition software and make contain errors or omissions. -- It Is medically necessary for this patient to continue to have their intrathecal pump refilled at regular intervals. This patient had an intrathecal pain pump implanted after meeting criteria of chronic intractable pain for greater than 3 months and failing conservative treatments. Patient has committed and been compliant to the treatment plan and all planned follow up care. Since implantation of the intrathecal pain pump, the patient has had decreased pain and been more functional. Oral medications have been reduced including intake of oral opioids. Patient continues to do well with intrathecal therapy with decrease in pain symptoms and increase in functional status. Stopping intrathecal medications can lead to life threatening withdrawal, seizures, cardiac arrest, severe pain, and possible . Pumps that are not refilled at regular intervals can be damages and cause and need for replacement. We continually titrate dose and concentration to optimize pain relief and function. We are limited in concentration for certain drugs to safely deliver medications through the pump and stay within the recommendations from the Polyanalges[employer] C [employer] Committee Guidelines. Depending on dose and concentration these pumps may need to be refilled sooner than 3 months as we titrate. A UDS is needed to verify patient's compliance with our office pain contract. This is ordered based off specific treatments related to chronic pain with the potential to abuse certain medications.
[2024-03-21 13:11] VITALS: BP 170/82; PULSE 85; RESP 16; O2SAT 95
--- NOTE | 2024-03-21 15:30 | PC.NURSE ---
Pt called approx 1340-states not feeling well, nauseated, headache. Reports symptoms began suddenly. States she feels like she is getting too much medication. Notified provider daniel gamboa-states to request for pt to come back to clinic. Relayed request to pt, who was agreeable states she is approx 1 hr away from the hospital. 1520-pt arrived back at the clinic, pt reports feels loopy headed , nauseated and has a headache. VS obtained L arm bp 182/102, R arm bp 183/95 HR 85, RR 18, SaO2 98% on RA. Pt denies SOA. Pt reports does have hx of htn but is normally well controlled on medications. Pump interrogated. Notified provider daniel gamboa that pt is back. daniel Gamboa states to decrease pt pump by 5%. Pt was originally given a 10% base rate increase. Returned to room with pt explained to pt provider wants her pump decreased by 5% and wants to observe pt for the next 30 minutes. Pt is agreeable to this POC. Pump decreased by 5% per provider instructions. Asked pt is she has had any caffeine today, pt states she has. Pt requests a starry to drink. Pt sitting in recliner with feet up, given starry to drink. Stated to pt I will return to check on her and recheck vital signs. Pt has her adult daughter in room with her.
--- NOTE | 2024-03-21 16:05 | PC.NURSE ---
Checked on pt at this time. Pt reports she is feeling better, states no longer feels loopy headed , nausea is gone. VS obtain R arm bp 167/104, HR 74, RR 16, SaO2 98% on RA. Notified provider daniel gamboa of pt updated VS, states okay to let pt leave, educated pt to call us if she needs anything or has any further issues. Pt reports she is ready to go home, educated pt to call if she has any needs or further issues, pt verbalized understanding. Pt ambulating with no issues. Pt left clinic at this time.
== END 2024-03-21 13:11 | disposition home or self-care (01) ==
PROVIDERS: PCP Internal Medicine; Visit Provider Nurse Practitioner Family
DX: M51.16 Intervertebral disc disorders with radiculopathy, lumbar region (principal)
CPT/HCPCS: 62370; 99212; G0463

== ENCOUNTER 2024-03-25 11:11 | Outpatient (POV) | payer MEDICARE, SELFPAY ==
[2024-03-25 11:38] VITALS: BP 157/88; PULSE 69; RESP 16; TEMP 36.6; O2SAT 98; BMI 24.3
--- NOTE | 2024-03-25 12:01 | P.PCN_ITS ---
Procedure Date: 03/25/24 Time: 11:55 Anesthesiologist:: Carol Amanda APRN Complications:: None Pre-procedure Diagnosis:: Degenerative disc disease of lumbar spine with lumbar radiculopathy symptoms Post-procedure Diagnosis:: Same Indications for Procedure:: Patient is a pleasant 63-year-old female who presents today for intrathecal adjustment and reprogram. She does rate her pain a 4 out of 10. She denies any new trauma or injury. Patient does state that when she left out of our office last week that she was feeling much better and that she never had any increased symptoms however she does feel like her pump is working more than efficient with this new device and feels like it still doing more than she needs and is requesting a slight decrease. Patient is currently managed with intrathecal morphine 25 mg/day with a daily dose of 18.241 mg/day. Her Rico has been reviewed and is appropriate Physical Exam: General: Alert and oriented x3, no acute distress, pleasant and cooperative Lungs: Respirations even and unlabored, symmetrical chest expansion Eyes: PERRL Musculoskeletal: Flexion and extension of lumbar [spine] somewhat guarded secondary to pain, [antalgic gait noted] Neurological: Speech clear, no gross sensory deficit Procedure Details:: Informed consent was obtained and the risk and benefits of the procedure were explained to the patient. Patient did have noninvasive monitoring was placed including noninvasive blood pressure cuff and pulse oximeter. Patient's pump was interrogated and was reprogrammed to morphine 17.308 mg/day. The patient tolerated the procedure well with no complications. Plan and Disposition:: Patient tolerated her procedure well and was discharged neurologically intact. I did discuss with patient that she can always call us if she feels like she still needs additional decrease. We did discuss about possibly changing her medication over to Dilaudid in future due to her concentration. We will follow- up with this at future visits. Patient is already scheduled at the end of this month for her intrathecal refill and reprogram. We will see her at this appointment and not give her any additional visits at this time unless she calls requesting a sooner appointment. Patient agrees with this plan of care. We will see the patient back in the clinic at the next intrathecal refill. Patient has been instructed to contact the clinic with any concerns before the next appointment. Dr. Knutson has reviewed this note and agrees with this plan of care. This note was dictated using voice recognition software and make contain errors or omissions. -- It Is medically necessary for this patient to continue to have their intrathecal pump refilled at regular intervals. This patient had an intrathecal pain pump implanted after meeting criteria of chronic intractable pain for greater than 3 months and failing conservative treatments. Patient has committed and been compliant to the treatment plan and all planned follow up care. Since implantation of the intrathecal pain pump, the patient has had decreased pain and been more functional. Oral medications have been reduced including intake of oral opioids. Patient continues to do well with intrathecal therapy with decrease in pain symptoms and increase in functional status. Stopping intrathecal medications can lead to life threatening withdrawal, seizures, cardiac arrest, severe pain, and possible . Pumps that are not refilled at regular intervals can be damages and cause and need for replacement. We continually titrate dose and concentration to optimize pain relief and function. We are limited in concentration for certain drugs to safely deliver medications through the pump and stay within the recommendations from the Polyanalgesic Consensus Committee Guidelines. Depending on dose and concentration these pumps may need to be refilled sooner than 3 months as we titrate. A UDS is needed to verify patient's compliance with our office pain contract. This is ordered based off specific treatments related to chronic pain with the potential to abuse certain medications.
--- NOTE | 2024-03-25 14:05 | PC.NURSE ---
1227- pt pump decreased by 5% per provider daniel gamboa direction. The base dose is what I adjusted down by 5%. I did speak with melissa Campbell to confirm this was done correctly. I then explained to pt what part of flex dosing set up was adjusted and compared it to her previous pump telemetry on 03/07/24-pt had an increase on that date and states she tolerated it with no issues. Stated to pt that is she has any further issues to please call back to the office, also informed pt that Dr. Knutson and charantronic julianna would be at our [place] location on Sunday03/28/24 if she was continuing to have issues it would be good to come while they are here, pt agreeable to this plan. Pt tolerated dosing decrease well, no issues noted. Pt left PM clinic at 1235, pt with her.
== END 2024-03-25 23:59 | disposition home or self-care (01) ==
PROVIDERS: PCP Internal Medicine; Visit Provider Nurse Practitioner Family
DX: M51.16 Intervertebral disc disorders with radiculopathy, lumbar region (principal)
CPT/HCPCS: 62370; 99212; G0463

== ENCOUNTER 2024-04-10 13:01 | Day surgery (SDC) | payer MEDICARE, SELFPAY ==
[2024-04-10 13:10] VITALS: BP 149/78; PULSE 78; RESP 16; O2SAT 96; BMI 24.3
--- NOTE | 2024-04-10 13:22 | EXP.PAIN.PRO ---
Procedure Date: 04/10/24 Time: 13:18 Anesthesiologist:: Carol Amanda APRN Complications:: None Pre-procedure Diagnosis:: Degenerative disc disease of lumbar spine with lumbar radiculopathy symptoms Post-procedure Diagnosis:: Same Indications for Procedure:: Patient is a pleasant 63-year-old female who presents today for intrathecal refill and reprogram. Today she rates her pain a 4 out of 10. She denies any new trauma or injury. She does state that the current dosage is working well and denies any side effects. She does state that her did end up having his prostate surgery and is doing well. Patient is currently managed with intrathecal morphine 25 mg/day with a daily dose of 17.3 mg/day. Her Rico has been reviewed and is appropriate Physical Exam: General: Alert and oriented x3, no acute distress, pleasant and cooperative Lungs: Respirations even and unlabored, symmetrical chest expansion Eyes: PERRL Musculoskeletal: Flexion and extension of lumbar [spine] somewhat guarded secondary to pain, [antalgic gait noted] Neurological: Speech clear, no gross sensory deficit Procedure Details:: Informed consent was obtained and the risk and benefits of the procedure were explained to the patient. The patient had noninvasive monitoring placed including noninvasive blood pressure cuff and pulse oximeter. Patient's pump was interrogated. The area over the pump was cleansed with chlorhexidine as a cleansing solution. In sterile fashion the pump was accessed with a 22-gauge needle. Approximately 5.8 mls of the pump solution was removed and discarded appropriately. The pump was then refilled with 20 mL's of morphine 25 mg/mL. The needle was withdrawn and a bandage was placed over the puncture site. The infusion rate was reprogrammed and continued at morphine 17.308 mg/day. The patient tolerated well with no complication. Plan and Disposition:: Patient tolerated her procedure well with no complications and was discharged neurologically intact. Patient is stable from postop restrictions from her pump replacement. Patient acknowledges understanding. Patient will return to clinic on or before her next intrathecal refill date. We will see the patient back in the clinic at the next intrathecal refill. Patient has been instructed to contact the clinic with any concerns before the next appointment. Dr. Knutson has reviewed this note and agrees with this plan of care. This note was dictated using voice recognition software and make contain errors or omissions. -- It Is medically necessary for this patient to continue to have their intrathecal pump refilled at regular intervals. This patient had an intrathecal pain pump implanted after meeting criteria of chronic intractable pain for greater than 3 months and failing conservative treatments. Patient has committed and been compliant to the treatment plan and all planned follow up care. Since implantation of the intrathecal pain pump, the patient has had decreased pain and been more functional. Oral medications have been reduced including intake of oral opioids. Patient continues to do well with intrathecal therapy with decrease in pain symptoms and increase in functional status. Stopping intrathecal medications can lead to life threatening withdrawal, seizures, cardiac arrest, severe pain, and possible . Pumps that are not refilled at regular intervals can be damages and cause and need for replacement. We continually titrate dose and concentration to optimize pain relief and function. We are limited in concentration for certain drugs to safely deliver medications through the pump and stay within the recommendations from the Polyanalgesic Consensus Committee Guidelines. Depending on dose and concentration these pumps may need to be refilled sooner than 3 months as we titrate. A UDS is needed to verify patient's compliance with our office pain contract. This is ordered based off specific treatments related to chronic pain with the potential to abuse certain medications.
[2024-04-10 13:31] VITALS: BP 145/95; PULSE 81; RESP 16; O2SAT 96
[2024-04-10 13:39] VITALS: BP 136/79; PULSE 79; RESP 16; O2SAT 95
[2024-04-10 14:54] VITALS: BP 145/95; PULSE 81; RESP 16; O2SAT 96
== END 2024-04-10 13:40 | disposition home or self-care (01) ==
PROVIDERS: PCP Internal Medicine; Visit Provider Nurse Practitioner Family
DX: M51.16 Intervertebral disc disorders with radiculopathy, lumbar region (principal)
CPT/HCPCS: 62370

== ENCOUNTER 2024-05-02 10:29 | Day surgery (SDC) | payer MEDICARE, SELFPAY ==
--- NOTE | 2024-05-02 10:34 | EXP.PAIN.PRO ---
Procedure Date: 05/02/24 Time: 10:55 Anesthesiologist:: Carol Amanda APRN Complications:: None Pre-procedure Diagnosis:: Degenerative disc disease of lumbar spine and lumbar radiculopathy Post-procedure Diagnosis:: same Indications for Procedure:: Patient is a pleasant 63-year-old female who presents today for intrathecal refill and reprogram. Today she rates her pain a 4 out of 10. She denies any new trauma or injury. Patient is currently managed with intrathecal morphine 25 mg/day with flex daily dosing of 17.3 mg/day. She denies any side effects. Her Rico has been reviewed and is appropriate Physical Exam: General: Alert and oriented x3, no acute distress, pleasant and cooperative Lungs: Respirations even and unlabored, symmetrical chest expansion Eyes: PERRL Musculoskeletal: Flexion and extension of lumbar [spine] somewhat guarded secondary to pain, [antalgic gait noted] Neurological: Speech clear, no gross sensory deficit Procedure Details:: Informed consent was obtained and the risk and benefits of the procedure were explained to the patient. The patient had noninvasive monitoring placed including noninvasive blood pressure cuff and pulse oximeter. Patient's pump was interrogated. The area over the pump was cleansed with chlorhexidine as a cleansing solution. In sterile fashion the pump was accessed with a 22-gauge needle. Approximately 4.8 mls of the pump solution was removed and discarded appropriately. The pump was then refilled with 16 mL's of morphine 25 mg/mL. The needle was withdrawn and a bandage was placed over the puncture site. The infusion rate was reprogrammed and continued at morphine 17.308 mg/day. The patient tolerated well with no complication. Plan and Disposition:: Patient tolerated her procedure well with no complications and was discharged neurologically intact. Pt was counseled that her pump medication did arrive still in sterile packaging with tamper proof seal however there was some fluid in the inside of the package. Pt was counseled we will be reaching out to the pharmacy to discuss this issue. We did refill her pump with 16ml's of solution and she was counseled that her pump refill date will be shorter than normal due to the volume discrepancy. Pt acknowledges understanding. Patient will return to clinic on or before her next intrathecal refill date. We will see the patient back in the clinic at the next intrathecal refill. Patient has been instructed to contact the clinic with any concerns before the next appointment. Dr. Knutson has reviewed this note and agrees with this plan of care. This note was dictated using voice recognition software and make contain errors or omissions. -- It Is medically necessary for this patient to continue to have their intrathecal pump refilled at regular intervals. This patient had an intrathecal pain pump implanted after meeting criteria of chronic intractable pain for greater than 3 months and failing conservative treatments. Patient has committed and been compliant to the treatment plan and all planned follow up care. Since implantation of the intrathecal pain pump, the patient has had decreased pain and been more functional. Oral medications have been reduced including intake of oral opioids. Patient continues to do well with intrathecal therapy with decrease in pain symptoms and increase in functional status. Stopping intrathecal medications can lead to life threatening withdrawal, seizures, cardiac arrest, severe pain, and possible . Pumps that are not refilled at regular intervals can be damages and cause and need for replacement. We continually titrate dose and concentration to optimize pain relief and function. We are limited in concentration for certain drugs to safely deliver medications through the pump and stay within the recommendations from the Polyanalgesic Consensus Committee Guidelines. Depending on dose and concentration these pumps may need to be refilled sooner than 3 months as we titrate. A UDS is needed to verify patient's compliance with our office pain contract. This is ordered based off specific treatments related to chronic pain with the potential to abuse certain medications
[2024-05-02 10:50] VITALS: BP 127/73; PULSE 72; RESP 16; TEMP 36.6; O2SAT 96; BMI 24.0
[2024-05-02 10:51] VITALS: BP 146/86; PULSE 74; RESP 18; O2SAT 98
[2024-05-02 10:52] VITALS: BP 146/86; PULSE 71; RESP 18; O2SAT 97
[2024-05-02 11:06] VITALS: BP 125/80; PULSE 70; RESP 16; O2SAT 97
--- NOTE | 2024-05-02 16:15 | PC.NURSE ---
LATE ENTRY: [facility] WAS CONTACTED SOON FLUID NOTICED IN BAG THAT CONTAINED THE SYRINGE FOR PATIENT PUMP MEDICATION. NO ANSWER VOICEMAIL WAS LEFT FOR RETURN PHONE CALL. [facility] PHARMACIST CALLED BACK APPROX 20-30 MINUTES LATER. PHARMACIST NOTIFIED THAT SYRINGE IS INTACT, UNABLE TO TELL WHERE FLUID LEAKED FROM, NO CRACKS NOTED. PER PROVIDER DISCRETION PATIENT PAIN PUMP WAS FILLED USING THIS SYRINGE. PHARMACIST STATED SHE WILL DOCUMENT ON HER END THE DISCREPENCY OF THE AMOUNT OF MEDICATION PATIENT WAS ABLE TO HAVE PLACE IN HER PAIN PUMP 16 ML AND THAT PATIENT PUMP WILL NEED TO BE FILLED EARLIER THAN NORMAL. STATES I DID NOT NEED TO DOCUMENT ON THE WASTE AREA OF THE [facility] PORTAL. PATIENT WAS NOTIFIED OF THE LESSER AMOUNT BEING PLACED IN HER PAIN PUMP PER PROVIDER CRISTOBAL SHARPE AND TO WHY LESSER AMOUNT BEING GIVEN RELATED TO ASSUMED LEAKING OF THE SYRINGE R/T FLUID IN SHIPPING BAG. PT GIVEN NEW PPR APPT DATE OF 05/16/24, ORDER PLACED FOR NEXT APPT REFILL ON THIS DATE.
== END 2024-05-02 11:06 | disposition home or self-care (01) ==
PROVIDERS: PCP Internal Medicine; Visit Provider Nurse Practitioner Family
DX: M51.16 Intervertebral disc disorders with radiculopathy, lumbar region (principal)
CPT/HCPCS: 62370

== ENCOUNTER 2024-05-16 11:04 | Day surgery (SDC) | payer MEDICARE, SELFPAY ==
[2024-05-16 11:14] VITALS: BP 140/88; PULSE 79; RESP 16; TEMP 36.6; O2SAT 96; BMI 24.0
[2024-05-16 11:21] VITALS: BP 134/94; PULSE 78; RESP 18; O2SAT 97
--- NOTE | 2024-05-16 11:26 | EXP.PAIN.PRO ---
Procedure Date: 05/16/24 Time: 11:26 Anesthesiologist:: Carol Amanda APRN Complications:: None Pre-procedure Diagnosis:: Degenerative disc disease of lumbar spine with lumbar radiculopathy symptoms Post-procedure Diagnosis:: Same Indications for Procedure:: Patient is a pleasant 63-year-old female who presents today for intrathecal refill and reprogram. Today rates it a 5 out of 10. She denies any new trauma or injury. She did state that she would like a small increase if possible. Patient is currently managed with morphine 25 mg/day with flex dosing of 17.308 mg/day. She denies any side effects. Her Rico has been reviewed and is appropriate. Physical Exam: General: Alert and oriented x3, no acute distress, pleasant and cooperative Lungs: Respirations even and unlabored, symmetrical chest expansion Eyes: PERRL Musculoskeletal: Flexion and extension of lumbar [spine] somewhat guarded secondary to pain, [antalgic gait noted] Neurological: Speech clear, no gross sensory deficit Procedure Details:: Informed consent was obtained and the risk and benefits of the procedure were explained to the patient. The patient had noninvasive monitoring placed including noninvasive blood pressure cuff and pulse oximeter. Patient's pump was interrogated. The area over the pump was cleansed with chlorhexidine as a cleansing solution. In sterile fashion the pump was accessed with a 22-gauge needle. Approximately 6.5 mls of the pump solution was removed and discarded appropriately. The pump was then refilled with 20 mL's of Dilaudid 25 mg/mL. The needle was withdrawn and a bandage was placed over the puncture site. The infusion rate was reprogrammed and increased 5% on the flex base dose. The patient tolerated well with no complication. Plan and Disposition:: Patient tolerated the procedure well with no complications and was discharged neurologically intact. Patient has been sensitive in the past and I did discuss with her about staying here at the office for 20 to 30 minutes to make sure she does not have any side effects. Patient does state that she is getting go to our local [facility] and get a few things and see how she does there. Patient will return to clinic on or before their next intrathecal refill date. We will see the patient back in the clinic at the next intrathecal refill. Patient has been instructed to contact the clinic with any concerns before the next appointment. Dr. Knutson has reviewed this note and agrees with this plan of care. This note was dictated using voice recognition software and make contain errors or omissions. -- It Is medically necessary for this patient to continue to have their intrathecal pump refilled at regular intervals. This patient had an intrathecal pain pump implanted after meeting criteria of chronic intractable pain for greater than 3 months and failing conservative treatments. Patient has committed and been compliant to the treatment plan and all planned follow up care. Since implantation of the intrathecal pain pump, the patient has had decreased pain and been more functional. Oral medications have been reduced including intake of oral opioids. Patient continues to do well with intrathecal therapy with decrease in pain symptoms and increase in functional status. Stopping intrathecal medications can lead to life threatening withdrawal, seizures, cardiac arrest, severe pain, and possible . Pumps that are not refilled at regular intervals can be damages and cause and need for replacement. We continually titrate dose and concentration to optimize pain relief and function. We are limited in concentration for certain drugs to safely deliver medications through the pump and stay within the recommendations from the Polyanalges[employer] Consensus Committee Guidelines. Depending on dose and concentration these pumps may need to be refilled sooner than 3 months as we titrate. A UDS is needed to verify patient's compliance with our office pain contract. This is ordered based off specific treatments related to chronic pain with the potential to abuse certain medications.
[2024-05-16 11:34] VITALS: BP 134/94; PULSE 77; RESP 18; O2SAT 96
[2024-05-16 11:43] VITALS: BP 147/88; PULSE 71; RESP 16; O2SAT 97
== END 2024-05-16 11:43 | disposition home or self-care (01) ==
PROVIDERS: PCP Internal Medicine; Visit Provider Nurse Practitioner Family
DX: M51.16 Intervertebral disc disorders with radiculopathy, lumbar region (principal)
CPT/HCPCS: 62370

== ENCOUNTER 2024-06-06 12:58 | Day surgery (SDC) | payer MEDICARE, SELFPAY ==
--- NOTE | 2024-06-06 13:07 | EXP.PAIN.PRO ---
Procedure Date: 06/06/24 Time: 13:20 Anesthesiologist:: Carol Amanda APRN Complications:: None Pre-procedure Diagnosis:: Degenerative disc disease of lumbar spine with lumbar radiculopathy symptoms Post-procedure Diagnosis:: Same Indications for Procedure:: Patient is a pleasant 63-year-old female who presents today for intrathecal refill and reprogram. Patient rates her pain today a 4 out of 10. She denies any new trauma or injury. Patient does state that she has additional questions regarding her medication. Patient is currently managed with morphine 25 mg/mL with a daily dose of 17.308 mg/day. She denies any side effects from this medication. She states it is working well however she is often times coming here every 3 weeks for her pump refills. She is asking what we can do for this. Her Rico has been reviewed and is appropriate. Physical Exam: General: Alert and oriented x3, no acute distress, pleasant and cooperative Lungs: Respirations even and unlabored, symmetrical chest expansion Eyes: PERRL Musculoskeletal: Flexion and extension of lumbar [spine] somewhat guarded secondary to pain, [antalgic gait noted] Neurological: Speech clear, no gross sensory deficit Procedure Details:: Informed consent was obtained and the risk and benefits of the procedure were explained to the patient. The patient had noninvasive monitoring placed including noninvasive blood pressure cuff and pulse oximeter. Patient's pump was interrogated. The area over the pump was cleansed with chlorhexidine as a cleansing solution. In sterile fashion the pump was accessed with a 22-gauge needle. Approximately 5 mls of the pump solution was removed and discarded appropriately. The pump was then refilled with 20 mL's of morphine 25 mg/mL. The needle was withdrawn and a bandage was placed over the puncture site. The infusion rate was reprogrammed and continued at its current dosage. The patient tolerated well with no complication. Plan and Disposition:: Patient tolerated the procedure well with no complications and was discharged neurologically intact. I did discuss with the patient due to her having such a high concentration that we would plan on switching her to Dilaudid and that it would be a lower dosage however not a starting dose and if there is a chance that she can have some withdrawal symptoms. Patient was counseled that we would have to access both her ports of her pump and that this would be done by Dr. Knutson. Patient acknowledges understanding. I did discuss with her that it would definitely increase her timeframe between pump refills and that if she decides she would like to proceed forward with this option between now and her next refill to please call us as soon as possible. Patient does state that her is having to have another surgical procedure on June 26 and that she knows therefore that she wants until after to see how everything goes with this. Patient will return to clinic on or before their next intrathecal refill date. We will see the patient back in the clinic at the next intrathecal refill. Patient has been instructed to contact the clinic with any concerns before the next appointment. Dr. Knutson has reviewed this note and agrees with this plan of care. This note was dictated using voice recognition software and make contain errors or omissions. -- It Is medically necessary for this patient to continue to have their intrathecal pump refilled at regular intervals. This patient had an intrathecal pain pump implanted after meeting criteria of chronic intractable pain for greater than 3 months and failing conservative treatments. Patient has committed and been compliant to the treatment plan and all planned follow up care. Since implantation of the intrathecal pain pump, the patient has had decreased pain and been more functional. Oral medications have been reduced including intake of oral opioids. Patient continues to do well with intrathecal therapy with decrease in pain symptoms and increase in functional status. Stopping intrathecal medications can lead to life threatening withdrawal, seizures, cardiac arrest, severe pain, and possible . Pumps that are not refilled at regular intervals can be damages and cause and need for replacement. We continually titrate dose and concentration to optimize pain relief and function. We are limited in concentration for certain drugs to safely deliver medications through the pump and stay within the recommendations from the Polyanalges[employer] Consensus Committee Guidelines. Depending on dose and concentration these pumps may need to be refilled sooner than 3 months as we titrate. A UDS is needed to verify patient's compliance with our office pain contract. This is ordered based off specific treatments related to chronic pain with the potential to abuse certain medications.
[2024-06-06 13:13] VITALS: BP 155/88; PULSE 77; RESP 16; TEMP 36.4; O2SAT 97; BMI 24.3
[2024-06-06 13:18] VITALS: BP 161/78; PULSE 81; RESP 18; O2SAT 98
[2024-06-06 13:20] VITALS: BP 161/78; PULSE 81; RESP 18; O2SAT 98
[2024-06-06 13:33] VITALS: BP 155/94; PULSE 62; RESP 16; O2SAT 92
== END 2024-06-06 13:33 | disposition home or self-care (01) ==
PROVIDERS: PCP Internal Medicine; Visit Provider Nurse Practitioner Family
DX: M51.16 Intervertebral disc disorders with radiculopathy, lumbar region (principal)
CPT/HCPCS: 62370

== ENCOUNTER 2024-06-27 12:57 | Day surgery (SDC) | payer MEDICARE, SELFPAY ==
--- NOTE | 2024-06-27 13:07 | P.PCN_ITS ---
Procedure Date: 06/27/24 Time: 13:24 Anesthesiologist:: Carol Amanda APRN Complications:: None Pre-procedure Diagnosis:: Degenerative disc disease of lumbar spine with lumbar radiculopathy symptoms Post-procedure Diagnosis:: Same Indications for Procedure:: Patient is a pleasant 63-year-old female who presents today for intrathecal refill and reprogram. Today she rates her pain a 4 out of 10. She denies any new trauma or injury.She is currently managed with morphine 25 mg/mL with a d aily dose of 17.308 mg/day. She denies any side effects. At our last visit we did discuss the possibility of changing her medication to Dilaudid in order to extend her pump refills out however at this time she states she still would like to wait till maybe around September.Her Rico has been reviewed and is appropriate. Physical Exam: General: Alert and oriented x3, no acute distress, pleasant and cooperative Lungs: Respirations even and unlabored, symmetrical chest expansion Eyes: PERRL Musculoskeletal: Flexion and extension of lumbar [spine] somewhat guarded secondary to pain, [antalgic gait noted] Neurological: Speech clear, no gross sensory deficit Procedure Details:: Informed consent was obtained and the risk and benefits of the procedure were explained to the patient. The patient had noninvasive monitoring placed including noninvasive blood pressure cuff and pulse oximeter. Patient's pump was interrogated. The area over the pump was cleansed with chlorhexidine as a cleansing solution. In sterile fashion the pump was accessed with a 22-gauge needle. Approximately 5 mls of the pump solution was removed and discarded appropriately. The pump was then refilled with 20 mL's of Dilaudid 25 mg/mL. The needle was withdrawn and a bandage was placed over the puncture site. The infusion rate was reprogrammed and continued at its current dose. The patient tolerated well with no complication. Plan and Disposition:: Patient tolerated the procedure well with no complications and was discharged neurologically intact. I did discuss with the patient to just let us know when she does want to change the pump medication. In the meantime we will make the last adjustment we can make to the current dosage by changing the concentration to morphine 30 mg/mL and see if we can at least extend her pump refills out as far as possible at that concentration. Patient agrees with this plan of care. Patient will return to clinic on or before their next intrathecal refill date. We will see the patient back in the clinic at the next intrathecal refill. Patient has been instructed to contact the clinic with any concerns before the next appointment. Dr. Knutson has reviewed this note and agrees with this plan of care. This note was dictated using voice recognition software and make contain errors or omissions. -- It Is medically necessary for this patient to continue to have their intrathecal pump refilled at regular intervals. This patient had an intrathecal pain pump implanted after meeting criteria of chronic intractable pain for greater than 3 months and failing conservative treatments. Patient has committed and been compliant to the treatment plan and all planned follow up care. Since implantation of the intrathecal pain pump, the patient has had decreased pain and been more functional. Oral medications have been reduced including intake of oral opioids. Patient continues to do well with intrathecal therapy with decrease in pain symptoms and increase in functional status. Stopping intrathecal medications can lead to life threatening withdrawal, seizures, cardi ac arrest, severe pain, and possible . Pumps that are not refilled at regular intervals can be damages and cause and need for replacement. We continually titrate dose and concentration to optimize pain relief and function. We are limited in concentration for certain drugs to safely deliver medications through the pump and stay within the recommendations from the Polyanalges[employer] Consensus Committee Guidelines. Depending on dose and concentration these pumps may need to be refilled sooner than 3 months as we titrate. A UDS is needed to verify patient's compliance with our office pain contract. This is ordered based off specific treatments related to chronic pain with the potential to abuse certain medications.
[2024-06-27 13:18] VITALS: BP 124/77; PULSE 83; RESP 16; O2SAT 98; BMI 24.3
[2024-06-27 13:21] VITALS: BP 121/71; PULSE 82; RESP 18; O2SAT 97
[2024-06-27 13:22] VITALS: BP 121/71; PULSE 93; RESP 18; O2SAT 97
[2024-06-27 13:35] VITALS: BP 142/88; PULSE 51; RESP 16; O2SAT 99
== END 2024-06-27 13:35 | disposition home or self-care (01) ==
PROVIDERS: PCP Internal Medicine; Visit Provider Nurse Practitioner Family
DX: M51.16 Intervertebral disc disorders with radiculopathy, lumbar region (principal)
CPT/HCPCS: 62370

== ENCOUNTER 2024-07-18 11:37 | Day surgery (SDC) | payer MEDICARE, SELFPAY ==
[2024-07-18 11:52] VITALS: BP 125/65; PULSE 71; RESP 16; O2SAT 97; BMI 24.3
--- NOTE | 2024-07-18 12:00 | P.HP_ITS ---
History of Present Illness *Admission Date: 07/18/24 *Reason for visit:: Intrathecal refill; DDD *History of present illness: Degenerative disc disease [facility] Disclaimer: The information contained in this section may have been updated after the patient was seen, as this information can be updated by other users. Medical History Pacemaker Hypothyroid Biallelic mutation of HFE gene Anticoagulated on Coumadin Surgical History History of colon resection History of hernia repair History of hysterectomy History of appendectomy History of thyroidectomy Family History Other Unknown family medical history Social History Smoking Status: Never smoker alcohol intake: never substance use type: denies use current occupational status: other Travel in the last 8 weeks?: None household members: other housing: house caffeine: No Have you lived/traveled outside [place] in past 30 days?: No Contact w/someone who lives/traveled outside [place] past 30 days?: No Exposure to someone with infectious disease in past 14 days?: No Do you have a fever (greater than 100.4 F or 38 C)?: No Have you tested positive for COVID-19?: No Exposed to someone with COVID-19 in past 14 days?: No Do you have a sore throat?: No Do you have a cough?: No Do you have any weakness?: No Do you have any diarrhea?: No Are you experiencing any unusual bleeding?: No Do you have any muscle aches/pain?: No Do you have any abdominal pain?: No Are you experiencing loss of taste or smell?: No Other Medical History Have you received the Flu Vaccine for this season: No Have you received the Pneumonia Vaccine: No Review of Systems Review of Systems Review of systems:: pertinent systems reviewed and negative unless documented below Review of systems (narrative): Review of Systems: General: No recent weight changes, no fever, no sleep disturbances Respiratory: No cough, no shortness of air, no recurring pulmonary infections Cardiovascular/peripheral vascular: No chest pain, no palpitations, no edema, no shortness of breath Gastrointestinal: No new onset incontinence, normal bowel movements reported Genitourinary: No new onset incontinence Musculoskeletal: Chronic back pain Psychiatric: [Normal mood/affect] Neurological: [Denies weakness in extremities], [denies balance issues] Meds Home Medications and Allergies Home Medications ?Medication ?Instructions ?Recorded ?Confirmed ?Type trazodone 50 mg tablet 50 mg PO HS SLEEP 08/04/19 07/18/24 History warfarin 5 mg tablet 5 mg PO DAILY Blood thinner 08/04/19 07/18/24 History zolpidem 5 mg sublingual tablet 5 mg SL DAILY insomnia 08/04/19 07/18/24 History alprazolam 0.5 mg tablet 0.5 mg PO BID 02/19/24 07/18/24 History calcitriol 0.5 mcg capsule 0.5 mcg PO DAILY 02/19/24 07/18/24 History estradiol 1 mg tablet 1 mg PO DAILY 02/19/24 07/18/24 History levothyroxine 100 mcg capsule 100 mcg PO DAILY 02/19/24 07/18/24 History linaclotide 290 mcg capsule 290 mcg PO DAILY 02/19/24 07/18/24 History (Linzess) New Prescriptions to Start Prescriptions: Allergies Allergy/AdvReac Type Severity Reaction Status Date / Time No Known Allergies Allergy Verified 02/29/24 10:50 Exam Data for Last 24 hours Vital signs and Labs for Last 24 Hours: Pulse Resp BP Pulse Ox O2 Del Method 71 16 125/65 97 Room Air 07/18/24 11:52 07/18/24 11:52 07/18/24 11:52 07/18/24 11:52 07/18/24 11:52 I & O for Last 24 hours: Intake & Output 07/15/24 07/16/24 07/17/24 07/18/24 23:59 23:59 23:59 23:59 Weight 165 lb Constitutional Constitutional: no acute distress *Routine HEENT Exam Head: Present normocephalic and atraumatic Eye: Present PERRL ENT: Present mucous membranes moist *Routine Neck Exam Neck: Present supple *Routine Respiratory Exam Respiratory: Present CTA bilaterally *Routine Cardiovascular Exam Cardiovascular: Present RRR *Routine Abdominal Exam Abdominal: Present soft *Routine Rectal Exam Rectal:: deferred *Routine Genitalia Exam Genitalia:: normal male Routine Back/Spine/Pelvis Exam Back/Spine: Present pain with flexion *Routine Skin Exam Skin: Present intact and warm *Routine Neurological Exam Neurological: Present alert and oriented X3 Routine Psychiatric Exam Psychiatric: Present normal affect and normal thought process Assessment and Plan *Assessment and plan (1) Degenerative joint disease (DJD) of lumbar spine: Status: Chronic Qualifiers: Spinal osteoarthritis complication: with radiculopathy Qualified Code(s): M47.26 - Other spondylosis with radiculopathy, lumbar region Category: Medical Code(s): M47.816 - Spondylosis without myelopathy or radiculopathy, lumbar region Plan Patient has been instructed to contact the clinic with any concerns before the next appointment. Dr. Knutson has reviewed this note and agrees with this plan of care. This note was dictated using voice recognition software and make contain errors or omissions. All injections are used with Lidocaine, Bupivacaine and dexamethasone. Occasionally urine drug screen is needed to verify patient's compliance with our office pain contract. This is ordered based off specific treatments related to chronic pain with the potential to abuse certain medications.
--- NOTE | 2024-07-18 12:01 | P.PCN_ITS ---
Procedure Date: 07/18/24 Time: 12:24 Anesthesiologist:: Carol Amanda APRN Complications:: None Pre-procedure Diagnosis:: Degenerative disc disease of lumbar spine with lumbar radiculopathy symptoms Post-procedure Diagnosis:: Same Indications for Procedure:: Patient is a pleasant 64-year-old female who presents today for intrathecal refill and reprogram. Today she rates her pain a 5 out of 10. She denies any new trauma or injury. Patient is currently managed with intrathecal morphine 25 mg/mL with a daily dose of 17. 376 mg/day. This is flex dosing. She denies any side effects. Her Rico has been reviewed and is appropriate. Physical Exam: General: Alert and oriented x3, no acute distress, pleasant and cooperative Lungs: Respirations even and unlabored, symmetrical chest expansion Eyes: PERRL Musculoskeletal: Flexion and extension of lumbar [spine] somewhat guarded seco ndary to pain, [antalgic gait noted] Neurological: Speech clear, no gross sensory deficit Procedure Details:: Informed consent was obtained and the risk and benefits of the procedure were explained to the patient. The patient had noninvasive monitoring placed including noninvasive blood pressure cuff and pulse oximeter. Patient's pump was interrogated. The area over the pump was cleansed with chlorhexidine as a cleansing solution. In sterile fashion the pump was accessed with a 22-gauge needle. Approximately 5.5 mls of the pump solution was removed and discarded appropriately. The pump was then refilled with 20 mL's of morphine 30 mg/mL. The needle was withdrawn and a bandage was placed over the puncture site. The infusion rate was reprogrammed and continued at its current dosage. The patient tolerated well with no complication. Plan and Disposition:: Patient tolerated the procedure well with no complications and was discharged neurologically intact. Patient was counseled that we are doing a concentration change from morphine 25 mg to 30 mg/mL and that there will be a bridge bolus. Patient acknowledges understanding agrees with this plan of care. We did also discuss at length regarding changing her over to Dilaudid and explained that this would have to go to continuous initially before we could switch back to flex dosing. Her starting dose would be Dilaudid 15 mg/mL with a daily dose of 5 mg/day. Patient would like to proceed forward with this option. We will plan on making this change at her next pump refill. Patient was counseled that this will be done with Dr. Knutson in order to access both port sites. Patient agrees with this plan of care. Patient will return to clinic on or before their next intrathecal refill date. We will see the patient back in the clinic at the next intrathecal refill. Patient has been instructed to contact the clinic with any concerns before the next appointment. Dr. Knutson has reviewed this note and agrees with this plan of care. This note was dictated using voice recognition software and make contain errors or omissions. -- It Is medically necessary for this patient to continue to have their intrathecal pump refilled at regular intervals. This patient had an intrathecal pain pump implanted after meeting criteria of chronic intractable pain for greater than 3 months and failing conservative treatments. Patient has committed and been compliant to the treatment plan and all planned follow up care. Since implantation of the intrathecal pain pump, the patient has had decreased pain and been more functional. Oral medications have been reduced including intake of oral opioids. Patient continues to do well with intrathecal therapy with decrease in pain symptoms and increase in functional status. Stopping intrathecal medications can lead to life threatening withdrawal, seizures, cardiac arrest, severe pain, and possible . Pumps that are not refilled at regular intervals can be damages and cause and need for replacement. We continually titrate dose and concentration to optimize pain relief and function. We are limited in concentration for certain drugs to safely deliver medications through the pump and stay within the recommendations from the Polyanalgesic Consensus Committee Guidelines. Depending on dose and concentration these pumps may need to be refilled sooner than 3 months as we titrate. A UDS is needed to verify patient's compliance with our office pain contract. This is ordered based off specific treatments related to chronic pain with the potential to abuse certain medications.
[2024-07-18 12:50] VITALS: BP 117/64; PULSE 75; RESP 18; O2SAT 95
[2024-07-18 12:52] VITALS: BP 119/81; PULSE 74; RESP 16; O2SAT 98
== END 2024-07-18 12:52 | disposition home or self-care (01) ==
PROVIDERS: PCP Internal Medicine; Visit Provider Nurse Practitioner Family
DX: M51.16 Intervertebral disc disorders with radiculopathy, lumbar region (principal)
CPT/HCPCS: 62370; 99221

== ENCOUNTER 2024-07-28 15:30 | Outpatient (POV) | payer MEDICARE, SELFPAY ==
--- OUTSIDE RECORDS SUMMARY | 2024-07-28 15:33 | XMS_ITS | Data Portability ---
Author Organization YOGESH - LPJOSE ALEJANDRO [facility] Address [address] [place] [address] Care Team Providers Care Inner Tube Cutter Name Role Phone FRANCINEMELINDA GAYTAN Primary Care Provider [phone] Assessment No assessment recorded. Plan of Treatment Reminders Order Date Submit Date Provider Last Modified By Organization Details Last Modified Time Details Appointments None recorded. Lab None recorded. Referral None recorded. Procedures None recorded. Surgeries None recorded. Imaging XR, [facility] [facility] [place] [address], [address] [place] [address] [place], [address], 4 16:17:35 Medication Orders bupivacaine (PF) 0.5 % (5 mg/mL) injection solution 2023 024 [place] [address] [facility], [address] [place], [address], 4 16:17:35 Depo-Medrol 80 mg/mL suspension for injection 2023 024 [place] [address] [facility], [address] [place], [address], 4 16:17:35 bupivacaine (PF) 0.5 % (5 mg/mL) injection solution 2023 024 [place] [address] [facility], [address] [place], [address], 16:17:35 Depo-Medrol 80 mg/mL suspension for injection 2023 Bartolo junior [facility], [address] [place], [address], 16:17:35 Patient TargetsNo targets recorded. Patient InstructionsNo instructions recorded. Reason for Referral None Reported. Results Created Date Observation Date Name Description Value Unit Range Abnormal Flag Note LastModifiedBy Organization Detail LastModifiedTime 03/10/20 24 XR, knee No observ ation record ed. [email or web address] [facility] [address] [facility] , [place], [address], 03/10/2024 15:23:31 Result Notes None recorded. Procedures Surgical History Date Name Laterality Status Provider Name and Address Organization Details Recorded Time 11/26/19 24 completed Tressa Hunt[place] s [place] - [facility] - [place] & [place] 03/10/2024 15:17:15 03/19/19 24 Other completed Tressa Hunt[place] [facility] [place] & [place] 03/10/2024 15:17:40 06/21/19 19 Date of Last Colonoscopy completed Tressa Hunt[place] [facility] [place] & [place] 03/10/2024 15:17:15 08/20/19 14 Most Recent Bone Density completed Tressa Hunt[place] [facility] [place] & [place] 03/10/2024 15:17:15 03/19/19 13 Thyroid Surgery completed Tressa Hunt[place] [facility] [place] & [place] 03/10/2024 15:17:40 06/17/18 94 Date of Last Pap Smear completed Tressa Hunt[place] [facility] [place] & [place] 03/10/2024 15:17:15 03/19/18 94 Other completed Tressa [place] [facility] [place] & [place] 03/10/2024 15:17:40 03/19/18 93 Appendectomy completed Tressa [place] [facility] [place] & [place] 03/10/2024 15:17:40 Imaging Results Imaging Date Name Status LastModified by Organiz ation Details LastModified Time 03/10/2024 XR, knee completed [id number] [facility] [address] [facility] , [place], [address], 03/10/2024 15:23:31 Procedure Notes None recorded. Medical Equipment None Reported. Allergies No known drug allergies Medications Name Sig Start Date Stop Date Status Note LastModified by Organization Details LastModified Time fluconazole 100 mg tablet TAKE 1 TABLET BY MOUTH ONCE A DAY. 03/08 completed Not Available Not Available Not Available phenazopyri dine 200 mg tablet TAKE (1) TABLET BY MOUTH THREE TIMES DAILY. 03/08 completed Not Available Not Available Not Available prednisone 20 mg tablet TAKE (1) TABLET BY MOUTH TWICE A DAY. 03/08 completed Not Available Not Available Not Available warfarin 2.5 mg tablet TAKE 1 TABLET BY MOUTH ONCE A DAY. active Not Available Not Available No t Available ciprofloxac in 500 mg tablet TAKE (1) TABLET BY MOUTH TWICE A DAY. 03/08 completed Not Available Not Available Not Available Depo-Medrol 80 mg/mL suspension for injection Take 80 mg by injection route. 2023 active Not Available Not Available Not Avai lable levothyroxi ne 100 mcg tablet TAKE 1 TABLET BY MOUTH ONCE DAILY. active Not Available Not Available No t Available alprazolam 0.5 mg tablet TAKE (1) TABLET BY MOUTH TWICE A DAY AND 2 AT BEDTIME. active Not Available Not Available No t Available estradiol 1 mg tablet TAKE 1 TABLET BY MOUTH ONCE A DAY. active Not Available Not Available No t Available trazodone 150 mg tablet TAKE 1 TABLET BY MOUTH ONCE A DAY. active Not Available Not Available No t Available warfarin 5 mg tablet TAKE 1 TABLET BY MOUTH ONCE A DAY DIRECTED active Not Available Not Available No t Available docusate sodium 100 mg capsule TAKE (1) CAPSULE BY MOUTH TWICE DAILY. 03/08 completed Not Available Not Available Not Available diltiazem CD 120 mg capsule,ext ended release 24 hr TAKE (1) CAPSULE BY MOUTH ONCE A DAY. 03/08 completed Not Available Not Available Not Available polyethylen e glycol 3350 17 gram/dose oral powder MIX 17 GRAMS IN 8 OZ OF WATER OR JUICE AND DRINK TWICE DAILY 03/08 completed Not Available Not Available Not Available zolpidem 10 mg tablet TAKE 1 TABLET BY MOUTH ONCE A DAY. active Not Available Not Available No t Available calcitriol 0.25 mcg capsule TAKE (1) CAPSULE BY MOUTH ONCE A DAY. active Not Available Not Available No t Available oxycodone 5 mg tablet TAKE (1) TABLET BY MOUTH EVERY FOUR HOURS NEEDED FOR MAJOR SURGERY/T RAUMA 03/08 completed Not Available Not Available Not Available bupivacaine (PF) 0.5 % (5 mg/mL) injection solution Take 5 mg by injection route. 2023 active Not Available Not Available Not Avai lable Linzess 290 mcg capsule TAKE (1) CAPSULE BY MOUTH ONCE A DAY. active Not Available Not Available No t Available Vitals None Recorded Social History Question Answer Notes LastModified by Organizat ion Details LastModified Time Tobacco Smoking Status Former Smoker [facility] & [place] 03/10/2024 15:17:32 Do You Have An Advance Directive? No Information not available 03/10/2024 Are You Blind Or Do You Have Difficulty Seeing? No Information not available 03/10/2024 What Was The Date Of Your Most Recent Tobacco Screening? 11/17/1986 Information not available 03/10/2024 Are You Passively Exposed To Smoke? No Information not available 03/10/2024 How Much Tobacco Do You Smoke? 1 PPD Information not available 03/10/2024 How Many Years Have You Smoked Tobacco? 10 Information not available 03/10/2024 Sex: Unknown Functional Status Question Answer Note LastModified by Organizat ion Details LastModified Time Do you use any illicit or recreational drugs? No Information not available 03/10/2024 What is your level of alcohol consumption? None Information not available 03/10/2024 Do you or have you ever used smokeless tobacco? Never used smokeless tobacco Information not available 03/10/2024 What is your exercise level? Moderate Information not available 03/10/2024 Mental Status Question Answer Note LastModified by Organization D etails LastModified Time Do you feel stressed (tense, restless, nervous, or anxious, or unable to sleep at night)? [id number] Information not available 03/10/2024 Family History Nothing Reported. Medical History Condition Response Clotting Disorder Y Heart Attack ([place]) Y Hypertension Y Gynecological History Statement/Question Response Abnormal Pap N 11/26/2023 Date of Last Colonoscopy 06/20/2018 Most Recent Bone Density 08/19/2013 Date of LMP 06/19/1993 Sexually Active? Y Menses Monthly Y Date of Last Pap Smear 06/17/1993 Current Control Method Hysterectom y Age at Menarche 10 Obstetrics History GPAL:G 0 P 0 0 0 0 Past Encounters Encounter ID Performer Location Encounter Start Date Encounter Closed Date Diagnosis/Indication Diagnosis SNOMED-CT Code Diagnosis ICD10 Code Diagnosis Note [id number] DO MATT HEMPHILL [address] [address] 03/10/2024 14:42:26 03/10/2024 15:30:04 Injury of knee 305188105 S89.92XA Osteoarthr itis of left knee joint 3061792933 09309 M17.12 Tear of me dial meniscus of knee 147885751 S83.242A Trochanter ic bursitis of right hip 2708092207 15774 M70.61 Health Concerns Section Related Observation LastModified by Organization Detai ls LastModified Time None Recorded Concern Status LastModified by Organization Details LastModified Time None Recorded Advance Directives Directive N: Payers Insurance Date Sequence Insurance Name Policy Number Policy Mercado Covered Member ID Mercado Member ID Guarantor Name 04/14/2024 1 [employer] (MEDICARE REPLACEMENT/A DVANTAGE - PPO) Karolyn Borrego [id number] Karolyn Borrego 04/26/2021 1 [place] [id number] Karolyn Borrego [id number] Karolyn Borrego 03/07/2024 2 [place] Karolyn Borrego [id number] Karolyn Borrego 04/26/2021 2 [place] Karolyn Elmo [id number] Karolyn Elmo 03/10/2024 1 [place] [id number] C Karolyn Elmo [id number] Karolyn Elmo Notes Date Note Type Note Provider Name and Address Organization Details Recorded Time 03/10/2024 text/html 63 y/o female he re today for right hip greater trochanteric bursa injection. Patient received last injection approx 3 years ago. States she got better relief from Depo Medrol with Dr. Ireland more so than Kenalog injection. Patient is also here left knee hyperextension injury a couple months ago. Pain is about lateral and inferior of patella . C/O popping, locking, and catching, swelling Taking Tyl and Ibu. E1AP 4v left knee and AP Pelvis in office 03.10.24 [facility] [address] [place] [address],[address], [place], [address], [place] [facility] [place] & [place] 03/14/2024 08:00:29 OBGyn Episode No OBEpisode recorded.
[2024-07-28 16:07] VITALS: BP 147/79; PULSE 61; RESP 14; O2SAT 99; BMI 24.6
--- NOTE | 2024-07-28 16:23 | P.PCN_ITS ---
Procedure Date: 07/28/24 Time: 16:09 Anesthesiologist:: Carol Amanda APRN Complications:: None Pre-procedure Diagnosis:: Degenerative disc disease of thoracic and lumbar spine, chronic pain syndrome Post-procedure Diagnosis:: Same Indications for Procedure:: Patient is a pleasant 64-year-old female who presents today for intrathecal adjustment and reprogram. Today she rates her pain an 8 out of 10. Patient denies any new falls or injuries however states that she feels like she has been having a little bit more chest pain along the left side that she has had for years. Patient denies this being a cardiac related issue. She states that it has always been this pain that our office has treated her for and that she has tried multiple injections even prior to the pump. Patient does state that she feels like it did go up from our last appointment. Patient had had a concentration change from morphine 25 mg/mL to 30 mg/mL. Patient is currently managed with morphine 17.561 mg/day on flex dosing. Her Rico has been reviewed and is appropriate. Physical Exam: General: Alert and oriented x3, no acute distress, pleasant and cooperative Lungs: Respirations even and unlabored, symmetrical chest expansion Eyes: PERRL Musculoskeletal: Flexion and extension of lumbar [spine] somewhat guarded secondary to pain, [antalgic gait noted] Neurological: Speech clear, no gross sensory deficit Procedure Details:: Informed consent was obtained and the risk and benefits of the procedure were explained to the patient. Patient did have noninvasive monitoring was placed including noninvasive blood pressure cuff and pulse oximeter. Patient's pump was interrogated and was reprogrammed to morphine 17.419 mg/day. The patient tolerated the procedure well with no complications. Plan and Disposition:: Patient was counseled that with her concentration change it did a less than 1% change to the overall dosage and this may have caused increased pain. We did decrease her back down to 17.419 mg/day. Patient is scheduled to have a double Procedure with Dr. Knutson to switch her medication from morphine to Dilaudid coming up on August 06 in [place]. I will order the patient a compounded cream. Patient was counseled to call her office if she is still having increased left sided mid back pain. Patient agrees with this plan of care. Patient will return to our office following her medication change. Patient tolerated the procedure well with no complications and was discharged neurologically intact. Patient will return to clinic on or before their next intrathecal refill date. We will see the patient back in the clinic at the next intrathecal refill. Patient has been instructed to contact the clinic with any concerns before the next appointment. Dr. Knutson has reviewed this note and agrees with this plan of care. This note was dictated using voice recognition software and make contain errors or omissions. -- It Is medically necessary for this patient to continue to have their intrathecal pump refilled at regular intervals. This patient had an intrathecal pain pump implanted after meeting criteria of chronic intractable pain for greater than 3 months and failing conservative treatments. Patient has committed and been compliant to the treatment plan and all planned follow up care. Since implantation of the intrathecal pain pump, the patient has had decreased pain a nd been more functional. Oral medications have been reduced including intake of oral opioids. Patient continues to do well with intrathecal therapy with decrease in pain symptoms and increase in functional status. Stopping intrathecal medications can lead to life threatening withdrawal, seizures, cardiac arrest, severe pain, and possible . Pumps that are not refilled at regular intervals can be damages and cause and need for replacement. We continually titrate dose and concentration to optimize pain relief and function. We are limited in concentration for certain drugs to safely deliver medications through the pump and stay within the recommendations from the Polyanalgesic Consensus Committee Guidelines. Depending on dose and concentration these pumps may need to be refilled sooner than 3 months as we titrate. A UDS is needed to verify patient's compliance with our office pain contract. This is ordered based off specific treatments related to chronic pain with the potential to abuse certain medications.
== END 2024-07-28 23:59 | disposition home or self-care (01) ==
PROVIDERS: PCP Internal Medicine; Visit Provider Nurse Practitioner Family
DX: G89.4 Chronic pain syndrome (principal); M51.369 Other intervertebral disc degeneration, lumbar region without mention of lumbar back pain or lower extremity pain; M51.34 Other intervertebral disc degeneration, thoracic region
CPT/HCPCS: 62368; 99212; G0463